=== PATIENT | female | born 2000 | race Caucasian/White ===

== ENCOUNTER 2019-01-07 11:58 | Emergency (ER) | payer MEDICAID ==
[2019-01-07 12:34] LABS: BILIRUBIN,URINE NEGATIVE (NEGATIVE); GLUCOSE, URINE (UA) NEGATIVE (NEGATIVE); KETONES,URINE (UA) NEGATIVE (NEGATIVE); LEUKOCYTE ESTERASE, URINE TRACE (NEGATIVE); NITRITE,URINE NEGATIVE (NEGATIVE); OCCULT BLOOD,URINE LARGE (NEGATIVE); PROTEIN,URINE NEGATIVE (NEGATIVE); UROBILINOGEN,URINE 0.2 (NORMAL) E.U./dL (NORMAL)
[2019-01-07 12:35] LABS: CLARITY,URINE TURBID (CLEAR)
[2019-01-07 12:41] LABS: BACTERIA,URINE Moderate /HPF (None Seen); RBC,URINE 0-5 /HPF (0-5); SQUAMOUS EPITHELIAL CELL,UR MOD Squamous (<= Few)
--- NOTE | 2019-01-07 12:47 | ED Physician Documentation ---
History of Present Illness - Stated complaint Stated Complaint: FEMALE - Chief complaint Chief Complaint: Abd Pain - History obtained from History obtained from: Patient - History of Present Illness Timing: How many days ago (several) Pain level max: 7 Pain level now: 5 - Additonal information Additional information: 18-year-old female presents to the emergency department 1 month after having a Mirena IUD placed. She states of the past 3-4 days has had increased pain and cramping. States she is having some slight clear discharge. No change in sexual partners. She called her client development manager who placed the device and they told her to come to the emergency department for evaluation. Nothing makes the pain better or worse. No fevers. No vomiting. Review of Systems Constitutional: denies: Fever, Chills Nose: denies: Rhinorrhea / runny nose, Congestion Respiratory: denies: Cough GI: denies: Nausea, Vomiting, Diarrhea : denies: Dysuria, Frequency, Hesitancy PD PAST MEDICAL HISTORY - Past Medical History Past Medical History: No - Past Surgical History Past Surgical History: No - Present Medications Home Medications: Ambulatory Orders Medication Instructions Recorded Confirmed Ibuprofen [Motrin] 800 mg PO Q8H PRN #30 tablet 01/07/19 - Allergies Allergies/Adverse Reactions: Allergies Allergy/AdvReac Type Severity Reaction Status Date / Time No Known Drug Allergies Allergy Verified 01/07/19 12:16 - Social History Does the pt smoke?: No Smoking Status: Never smoker Does the pt drink ETOH?: No Does the pt have substance abuse?: Yes Substance Use and Type: Marijuana PD ED PE NORMAL - Vitals Vital signs reviewed: Yes - General General: Alert and oriented X 3, No acute distress - Abdomen Abdomen: Soft, Non tender, Non distended - Female Female : Honey Producer present (Dali PEDERSEN), Other (Normal external exam. Normal internal exam. IUD strings are visible from the cervical os. Small amount of bleeding.) - Derm Derm: Warm and dry - Neuro Neuro: Alert and oriented X 3 - Psych Psych: Normal mood, Normal affect Results - Vitals Vitals: Vital Signs - 24 hr 01/07/19 01/07/19 12:13 14:27 Temperature 36.8 C Heart Rate 123 H 98 Respiratory 20 18 Rate Blood Pressure 126/65 119/75 O2 Saturation 96 99 Oxygen O2 Source Room air - Labs Labs: Microbiology 01/07/19 13:00 Wet Prep - Final Vaginal Laboratory Tests 01/07/19 01/07/19 12:20 12:20 Urine Color Cancelled YELLOW Urine Clarity Cancelled TURBID Urine pH Cancelled 7.0 Ur Specific [place] Cancelled 1.025 Urine Protein Cancelled NEGATIVE Urine Glucose (UA) Cancelled NEGATIVE Urine Ketones Cancelled NEGATIVE Urine Occult Blood Cancelled LARGE H Urine Nitrite Cancelled NEGATIVE Urine Bilirubin Cancelled NEGATIVE Urine Urobilinogen Cancelled 0.2 (NORMAL) Ur Leukocyte Esterase Cancelled TRACE H Urine RBC Cancelled 0-5 Urine WBC Cancelled 6-10 H Urine WBC Clumps Cancelled Ur Epithelial Cells Cancelled Ur Squamous Epith Cells Cancelled MOD Squamous H Urine Crystals Cancelled Amorphous Sediment Cancelled Urine Bacteria Cancelled Moderate H Urine Casts Cancelled Urine Starch Cancelled Urine Mucus Cancelled Urine Trichomonas Cancelled Urine Yeast Cancelled Urine Sperm Cancelled Ur Oval Fat Bodies Cancelled Ur Microscopic Review INDICATED Urine Culture Comments Cancelled NOT INDICATED PD MEDICAL DECISION MAKING - ED course Complexity details: reviewed results, re-evaluated patient, considered differential, d/w patient, d/w salon sales consultant (Dr. León - follow up Thursday as scheduled) ED course: 18-year-old female here with cramping from a recently inserted IUD. Bedside ultrasound reveals a normally placed IUD. Appears centrally located in the uterus. Strings are visible on pelvic exam. No evidence of infection. Urinalysis appears contaminated and she is not having symptoms consistent with a UTI. She has an appointment with gynecology on Thursday and will have her follow-up then for further care. Patient counseled regarding signs and symptoms for which I believe and urgent re-evaluation would be necessary. Patient with good understanding of and agreement to plan and is comfortable going home at this time This document was made in part using voice recognition software. While efforts are made to proofread this document, sound alike and grammatical errors may occur. Departure - Departure Disposition: 01 Home, Self Care Clinical Impression: IUD check up Condition: Good Instructions: Levonorgestrel intrauterine device IUD Follow-Up: Deysi Hastings CNM, DIRECTOR PRODUCT SAFETY [Provider Admit Priv/Credential] - 01/10/19 Prescriptions: Ibuprofen [Motrin] 800 mg PO Q8H PRN #30 tablet PRN Reason: PAIN &/OR FEVER Comments: Follow up with gynecology on Thursday as scheduled. Return if you worsen.
[2019-01-07 14:27] VITALS: BP 119/75
== END 2019-01-07 14:51 | disposition home or self-care (01) ==
LOC: ED 11:58
DX: R10.9 Unspecified abdominal pain (principal); Z30.431 Encounter for routine checking of intrauterine contraceptive device
CPT/HCPCS: 81001; 81003; 87086; 87210; 99283

== ENCOUNTER 2020-12-04 20:46 | Emergency (ER) | payer MEDICAID ==
[2020-12-04 21:02] VITALS: BP 150/99
[2020-12-04] MEDS ORDERED: AMOX/CLAV 875 MG/125 MG TABLET PO STA (21:17)
[2020-12-04] MEDS ORDERED: HYDROcod/ACETAM 5/325 MG TABLET PO STA (21:17)
--- NOTE | 2020-12-04 21:21 | ED Physician Documentation ---
History of Present Illness - Stated complaint Stated Complaint: MOUTH PX - Chief complaint Chief Complaint: Heent - Additonal information Additional information: 20-year-old female presents emergency department for evaluation of intermittent but recurrent right upper mouth pain. Reports that it began about 6 weeks ago. It began at tooth #2 at the site where a filling had fallen out. She has no trismus or facial swelling. She is sometimes pain-free but will suddenly developed the pain in her mouth that radiates towards the anterior upper jaw as well as through her ear. She is a daily tobacco and cannabis user. Denies any pertinent past medical history. Takes no prescribed medications. Review of Systems Constitutional: reports: Reviewed and negative Eyes: reports: Reviewed and negative Ears: reports: Ear pain Nose: reports: Reviewed and negative Throat: reports: Dental pain / toothache. denies: Oral lesions / sores, Sore throat, Swollen tonsils Respiratory: reports: Reviewed and negative GI: reports: Reviewed and negative PD PAST MEDICAL HISTORY - Past Surgical History Past Surgical History: No - Present Medications Home Medications: Ambulatory Orders Medication Instructions Recorded Confirmed Amox/Clav 875/125 [Augmentin] 1 each PO Q12H #20 tablet 12/04/20 Chlorhexidine Gluconate [Peridex] 15 ml MM BID #118 mouthwash 12/04/20 Ibuprofen [Motrin] 600 mg PO Q6H PRN #30 tab 12/04/20 - Allergies Allergies/Adverse Reactions: Allergies Allergy/AdvReac Type Severity Reaction Status Date / Time No Known Drug Allergies Allergy Verified 01/07/19 12:16 - Social History Does the pt smoke?: No Smoking Status: Never smoker Does the pt drink ETOH?: No Does the pt have substance abuse?: Yes PD ED PE EXPANDED - General General: Alert, Anxious, In Pain - HEENT HEENT: Atraumatic, Ears normal, Moist mucous membranes, Pharynx normal, Dental decay (Tooth #2 with missing filling. It is off-color and li in appearance. Mild gumline erythema without fluctuance or drainage. No trismus. Normal swallow.). No: Pharyngeal erythema, Swollen tonsils, Tonsillar exudate, Dental trauma - Neck Neck: Supple w/out meningeal sx. No: Adenopathy - Cardiac Cardiac: Tachy, Radial strong equal, Cap refill < 2 sec. No: Murmur Present - Respiratory Respiratory: Clear to ausultation alek. No: Distress, Labored Results - Vitals Vitals: Vital Signs - 24 hr 12/04/20 20:52 Temperature 37.3 C Heart Rate 119 H Respiratory 22 Rate Blood Pressure 150/99 H O2 Saturation 100 Oxygen O2 Source Room air PD MEDICAL DECISION MAKING - ED course Complexity details: reviewed results, re-evaluated patient, considered differential ED course: 20-year-old female presents emergency department for evaluation of intermittent right upper mouth pain at the site where a filling has fallen out of tooth #2. The tooth itself is decayed and li in color. There is mild tenderness with palpation of this tooth and a small amount of gumline erythema without fluctuance. Patient has no trismus. Normal swallow and phonation. We will start her on a 10-day course of Augmentin as well as mouthwash. Will recommend ibuprofen for analgesia at home. Patient declines narcotic prescription. I have advised her to have close follow-up with dentistry as soon as possible. Emergent return precautions discussed for increased pain, fevers, trismus or facial swelling. Departure - Departure Disposition: Home, Self Care Clinical Impression: Dentalgia Condition: Stable Record reviewed to determine appropriate education?: Yes Instructions: ED Tooth Pain Follow-Up: [facility] [Provider Group] Prescriptions: Amox/Clav 875/125 [Augmentin] 1 each PO Q12H #20 tablet Ibuprofen [Motrin] 600 mg PO Q6H PRN #30 tab PRN Reason: Pain Chlorhexidine Gluconate [Peridex] 15 ml MM BID #118 mouthwash Comments: Chloe I think the cause of your mouth pain is most likely the decaying tooth in your upper jaw. Please fill the prescription for the Augmentin and begin taking twice daily as directed. I would like you to use the ibuprofen with food 2-3 times a day for discomfort. I have prescribed a mouthwash. However if it is not covered by insurance or cost prohibitive please rinse your mouth 3 times daily with warm salt water. Please follow-up with a dentist as soon as possible. It is likely that you will need a root canal of this tooth or for the tooth to be removed entirely. [facility] are likely the closest dental clinics to where you live. However [facility] in the [facility] often has dental clinic walk-in appointments available. I recommend that you call them to see if they are able to assist you if you are able to find your way to the [place] area. If at any point you have facial swelling, fevers, cannot open your jaw fully or tolerate your oral secretions/saliva and please return immediately to the ER
== END 2020-12-04 21:35 | disposition home or self-care (01) ==
LOC: ED 20:46
DX: K08.89 Other specified disorders of teeth and supporting structures (principal); Z72.0 Tobacco use
CPT/HCPCS: 99283; A9270

== ENCOUNTER 2020-12-15 08:47 | Emergency (ER) | payer MEDICAID ==
[2020-12-15 09:17] LABS: BASOPHILS # (AUTO) 0.1 10^3/uL (0.0-0.1); BASOPHILS % (AUTO) 0.6 %; EOSINOPHILS # (AUTO) 0.3 10^3/uL (0.0-0.7); HGB - HEMOGLOBIN 13.5 g/dL (12.0-16.0); LYMPHOCYTES # (AUTO) 2.1 10^3/uL (1.5-3.5); LYMPHOCYTES % (AUTO) 22.1 %; MEAN CORPUSCULAR HEMOGLOBIN 29.5 pg (27.0-31.0); MEAN CORPUSCULAR HGB CONC 33.2 g/dL (32.0-36.0); MEAN CORPUSCULAR VOLUME 89.1 fL (81.0-99.0); MEAN PLATELET VOLUME 9.6 fL (7.9-10.8); MONOCYTES # (AUTO) 0.5 10^3/uL (0.0-1.0); MONOCYTES % (AUTO) 5.4 %; NEUTROPHILS # (AUTO) 6.4 10^3/uL (1.5-6.6); NEUTROPHILS % (AUTO) 68.5 %; PLT - PLATELET COUNT 350 10^3/uL (130-450); RED BLOOD COUNT 4.57 10^6/uL (4.20-5.40); RED CELL DISTRIBUTION WIDTH 15.4 % (12.0-15.0); WHITE BLOOD COUNT 9.3 x10^3/uL (4.8-10.8)
[2020-12-15 09:30] LABS: GLUCOSE, URINE (UA) NEGATIVE (NEGATIVE); KETONES,URINE (UA) >=80 mg/dL (NEGATIVE); LEUKOCYTE ESTERASE, URINE NEGATIVE (NEGATIVE); NITRITE,URINE NEGATIVE (NEGATIVE); OCCULT BLOOD,URINE SMALL (NEGATIVE); PH,URINE 5.5 PH (5.0-7.5); PROTEIN,URINE NEGATIVE (NEGATIVE); UROBILINOGEN,URINE 0.2 (NORMAL) E.U./dL (NORMAL)
[2020-12-15 09:30] LABS: ALBUMIN 4.7 g/dL (3.2-5.5); ALBUMIN/GLOBULIN RATIO 1.3 (1.0-2.2); BILIRUBIN,TOTAL 0.5 mg/dL (0.2-1.0); CALCIUM 9.7 mg/dL (8.5-10.3); CREATININE 0.6 mg/dL (0.4-1.0); TOTAL PROTEIN 8.4 g/dL (6.7-8.2)
[2020-12-15 09:35] LABS: BILIRUBIN,URINE NEGATIVE (NEGATIVE); HCG UR QUAL NEGATIVE; ICTOTEST,URINE NEGATIVE
[2020-12-15 09:36] LABS: CLARITY,URINE HAZY (CLEAR)
[2020-12-15] MEDS ORDERED: ONDANSETRON 4 MG/2 ML VIAL IVP STA ×2 (09:45→12:47)
[2020-12-15] MEDS ORDERED: LACTATED RINGERS 1,000 ML IV STA ×2 (09:45→11:29)
[2020-12-15 09:48] LABS: BACTERIA,URINE Few /HPF (None Seen); RBC,URINE 0-5 /HPF (0-5); SQUAMOUS EPITHELIAL CELL,UR MOD Squamous (<= Few)
--- NOTE | 2020-12-15 11:23 | ED Physician Documentation ---
History of Present Illness - Stated complaint Stated Complaint: DIZZINESS,NAUSEA - Chief complaint Chief Complaint: General - History obtained from History obtained from: Patient - Additonal information Additional information: 20-year-old woman with past medical history of recent dental infection status post antibiotics with resolution presents with nonbloody nonbilious nausea and vomiting yesterday and this morning associated with chills, intermittent dizziness and a brief fainting spell yesterday witnessed by her significant other. Patient does not have a thermometer at home but feels like she has been running a fever. Denies back pain abdominal pain or urinary symptoms. She does have IBS and has chronic diarrhea that is nonworsening and without blood. denies sick contacts aside from boyfriend who has uri symptoms. Review of Systems Ten Systems: 10 systems reviewed and negative Constitutional: reports: Chills, Myalgias Nose: reports: Rhinorrhea / runny nose Cardiac: denies: Chest pain / pressure Respiratory: reports: Dyspnea GI: reports: Nausea, Vomiting, Diarrhea Neurologic: reports: Syncope PD PAST MEDICAL HISTORY - Past Medical History Past Medical History: No - Past Surgical History Past Surgical History: No - Present Medications Home Medications: Ambulatory Orders Medication Instructions Recorded Confirmed Amox/Clav 875/125 [Augmentin] 1 each PO Q12H #20 tablet 12/04/20 12/15/20 Chlorhexidine Gluconate [Peridex] 15 ml MM BID #118 mouthwash 12/04/20 12/15/20 Ibuprofen [Motrin] 600 mg PO Q6H PRN #30 tab 12/04/20 12/15/20 Ondansetron Odt [Zofran Odt] 4 mg PO Q8H PRN 3 Days #9 tablet 12/15/20 - Allergies Allergies/Adverse Reactions: Allergies Allergy/AdvReac Type Severity Reaction Status Date / Time No Known Drug Allergies Allergy Verified 12/15/20 08:56 - Social History Does the pt smoke?: No Smoking Status: Never smoker Does the pt drink ETOH?: No Does the pt have substance abuse?: Yes PD ED PE NORMAL - Vitals Vital signs reviewed: Yes - General General: Alert and oriented X 3, No acute distress, Well developed/nourished - HEENT HEENT: Atraumatic, PERRL, EOMI, Pharynx benign, Other (dry MM) - Neck Neck: Supple, no meningeal sign - Cardiac Cardiac: RRR - Respiratory Respiratory: No respiratory distress, Clear bilaterally - Abdomen Abdomen: Non tender, Non distended - Female Female : Deferred - Rectal Rectal: Deferred - Back Back: No CVA TTP - Derm Derm: Normal color - Extremities Extremities: No deformity, No edema - Neuro Neuro: Alert and oriented X 3, agricultural equipment salesperson 2-12 intact, No motor deficit, No sensory deficit - Psych Psych: Normal mood, Normal affect Results - Vitals Vitals: Vital Signs - 24 hr 12/15/20 12/15/20 08:51 10:00 Temperature 35.9 C L Heart Rate 114 H 74 Respiratory 16 16 Rate Blood Pressure 154/119 H 110/69 O2 Saturation 98 99 Oxygen O2 Source Room air - Labs Labs: Laboratory Tests 12/15/20 12/15/20 12/15/20 09:04 09:04 09:16 WBC 9.3 RBC 4.57 Hgb 13.5 Hct 40.7 MCV 89.1 MCH 29.5 MCHC 33.2 RDW 15.4 H Plt Count 350 MPV 9.6 Neut # (Auto) 6.4 Lymph # (Auto) 2.1 [place] # (Auto) 0.5 Eos # (Auto) 0.3 Baso # (Auto) 0.1 Absolute Nucleated RBC 0.00 Nucleated RBC % 0.0 Sodium 139 Potassium 3.4 L Chloride 102 Carbon Dioxide 23 Anion Gap 14.0 H BUN 8 Creatinine 0.6 Estimated GFR (MDRD) 125 Glucose 108 H Calcium 9.7 Total Bilirubin 0.5 AST 21 ALT 18 Alkaline Phosphatase 68 Total Protein 8.4 H Albumin 4.7 Globulin 3.7 Albumin/Globulin Ratio 1.3 Lipase 18 L Urine Color YELLOW Urine Clarity HAZY Urine pH 5.5 Ur Specific [place] >=1.030 H Urine Protein NEGATIVE Urine Glucose (UA) NEGATIVE Urine Ketones >=80 H Urine Occult Blood SMALL H Urine Nitrite NEGATIVE Urine Bilirubin NEGATIVE Urine Urobilinogen 0.2 (NORMAL) Ur Leukocyte Esterase NEGATIVE Urine RBC 0-5 Urine WBC 0-3 Ur Squamous Epith Cells MOD Squamous H Urine Bacteria Few Ur Microscopic Review INDICATED Urine Culture Comments NOT INDICATED Urine HCG, Qual NEGATIVE PD MEDICAL DECISION MAKING - ED course ED course: 20-year-old woman with nausea vomiting, lightheadedness and chills with preceding URI symptoms. We will Covid swab..Patient feeling better status post Zofran and IV fluids. Educated about symptomatic care. Return precautions given. Patient will follow up with her primary doctor. Departure - Departure Clinical Impression: Nausea and vomiting, Syncope Condition: Good Instructions: Diet Clear Liquid Dc Prescriptions: Ondansetron Odt [Zofran Odt] 4 mg PO Q8H PRN 3 Days #9 tablet PRN Reason: Nausea / Vomiting Comments: You were seen in the emergency department for dizziness, nausea, vomiting and chills. Your labs, urine, and ekg were normal. You likely have a viral infection. Buy a thermometer and take your temperature by mouth at home when you are feeling sick. If it is over 100.4 then you have a fever. Drink pedialyte to stay hydrated. get lots of rest. return To the emergency room for any new or worsening symptoms or other concerns. Follow-up with your primary doctor this week.
[2020-12-15 13:21] VITALS: BP 121/74
== END 2020-12-15 13:15 | disposition home or self-care (01) ==
LOC: ED 08:47
DX: R55 Syncope and collapse (principal); R42 Dizziness and giddiness; R11.2 Nausea with vomiting, unspecified; R68.83 Chills (without fever); Z20.822 Contact with and (suspected) exposure to COVID-19; K58.0 Irritable bowel syndrome with diarrhea
CPT/HCPCS: 36415; 80053; 81001; 81025; 83690; 85025; 87635; 93005; 96361; 96374; 96376; 99283; 99284; J7120; 81003; 87086

== ENCOUNTER 2021-07-15 11:30 | Emergency (ER) | payer MEDICAID ==
[2021-07-15 11:47] VITALS: BP 152/113
--- NOTE | 2021-07-15 12:14 | ED Physician Documentation ---
PD HPI HEENT - Stated complaint Stated Complaint: LUMP ON HEAD - Chief complaint Chief Complaint: Heent - History obtained from History obtained from: Patient - Additional information Additional information: 3 days of pain and swelling of the left posterior neck without URI symptoms or other symptoms of infection. Review of Systems Constitutional: reports: Reviewed and negative Eyes: reports: Reviewed and negative Ears: reports: Reviewed and negative Nose: reports: Reviewed and negative Throat: reports: Reviewed and negative Cardiac: reports: Reviewed and negative PD PAST MEDICAL HISTORY - Past Surgical History Past Surgical History: No - Present Medications Home Medications: Ambulatory Orders Medication Instructions Recorded Confirmed Ibuprofen [Motrin] 800 mg PO Q8H PRN #20 tablet 07/15/21 - Allergies Allergies/Adverse Reactions: Allergies Allergy/AdvReac Type Severity Reaction Status Date / Time No Known Drug Allergies Allergy Verified 07/15/21 11:47 - Social History Does the pt smoke?: No Smoking Status: Never smoker Does the pt drink ETOH?: No Does the pt have substance abuse?: Yes PD ED PE NORMAL - Vitals Vital signs reviewed: Yes - General General: Alert and oriented X 3, No acute distress - HEENT HEENT: Other (2 small firm swellings consistent with lymphadenopathy of the left posterior cervical chain. Mildly tender. No fluctuance or skin changes.) - Neck Neck: Supple, no meningeal sign, No bony TTP - Neuro Neuro: Alert and oriented X 3, Normal speech Results - Vitals Vitals: Vital Signs - 24 hr 07/15/21 11:44 Heart Rate 109 H Respiratory 16 Rate Blood Pressure 152/113 H O2 Saturation 98 Oxygen O2 Source Room air Departure - Departure Disposition: 01 Home, Self Care Clinical Impression: Lymphadenopathy Condition: Good Record reviewed to determine appropriate education?: Yes Instructions: ED Cervical Adenitis No Abx Tx Prescriptions: Ibuprofen [Motrin] 800 mg PO Q8H PRN #20 tablet PRN Reason: PAIN &/OR FEVER Comments: As discussed this seems most consistent with lymphadenopathy of the posterior cervical chain. You can just keep an eye on it for now if it gets worse or comes to ahead or if there are skin changes return for reevaluation. If it goes away, no specific treatment is necessary, if it lasts more than a few weeks you should follow-up with ENT for evaluation for potential biopsy. The closest ENT is in [place], the phone number is [phone].
== END 2021-07-15 12:22 | disposition home or self-care (01) ==
LOC: ED 11:30
DX: R59.0 Localized enlarged lymph nodes (principal)
CPT/HCPCS: 99281; 99283

== ENCOUNTER 2022-05-24 12:07 | Emergency (ER) | payer MEDICAID ==
[2022-05-24 12:15] VITALS: BP 160/91
--- NOTE | 2022-05-24 13:12 | ED Physician Documentation ---
PD HPI URI - Stated complaint Stated Complaint: CHEST PAIN/COUGH/DIZZINESS - Chief complaint Chief Complaint: Resp - History obtained from History obtained from: Patient - History of Present Illness Timing - onset: How many days ago (3) Timing duration: Days (3) Timing details: Gradual onset Pain level max: 0 Pain level now: 0 Associated symptoms: Nasal congestion, Rhinorrhea, Dry cough. No: Fever, Chest pain, Dyspnea Contributing factors: No: Sick contact Improves by: Rest Worsened by: Activity - Additional information Additional information: 22-year-old female presents to the emergency department complaining of cough, congestion for the past 2 to 3 days. She is not COVID vaccinated but did have COVID about 5 months ago. She also has mild nausea but no vomiting. Denies any possibility of . She states her boss told her to come to the emergency department for a COVID test and that she will need to be quarantined until the COVID test is negative. Review of Systems Constitutional: denies: Fever, Chills Nose: reports: Rhinorrhea / runny nose, Congestion Respiratory: denies: Cough GI: denies: Nausea, Vomiting, Diarrhea Skin: denies: Rash Musculoskeletal: denies: Neck pain, Back pain Neurologic: denies: Headache PD PAST MEDICAL HISTORY - Past Medical History Past Medical History: No - Past Surgical History Past Surgical History: No - Present Medications Home Medications: Ambulatory Orders Medication Instructions Recorded Confirmed Norethindrone-E.estradiol-Iron 1 tab PO DAILY 05/24/22 05/24/22 [Kimber 24 Fe 1 mg-20 Mcg Tablet] Prochlorperazine [Compazine] 5 mg PO Q6H PRN #14 tablet 05/24/22 - Allergies Allergies/Adverse Reactions: Allergies Allergy/AdvReac Type Severity Reaction Status Date / Time No Known Drug Allergies Allergy Verified 05/24/22 12:15 - Living Situation Living Arrangement: reports: At home - Social History Does the pt smoke?: Yes Smoking Status: Current every day smoker Does the pt drink ETOH?: No Does the pt have substance abuse?: Yes Substance Use and Type: Marijuana PD ED PE NORMAL - Vitals Vital signs reviewed: Yes - General General: Alert and oriented X 3, No acute distress - HEENT HEENT: PERRL, Moist mucous membranes - Neck Neck: Supple, no meningeal sign - Cardiac Cardiac: RRR, Strong equal pulses - Respiratory Respiratory: No respiratory distress, Clear bilaterally - Abdomen Abdomen: Soft, Non tender, Non distended - Derm Derm: Warm and dry, No rash - Extremities Extremities: No edema - Neuro Neuro: Alert and oriented X 3 - Psych Psych: Normal mood, Normal affect Results - Vitals Vitals: Vital Signs - 24 hr 05/24/22 12:10 Temperature 36.9 C Heart Rate 70 Respiratory 16 Rate Blood Pressure 160/91 H O2 Saturation 98 Oxygen O2 Source Room air PD MEDICAL DECISION MAKING - ED course Complexity details: considered differential, d/w patient ED course: Patient is well-appearing, nontoxic. Afebrile. Lungs are clear to auscultation bilaterally. No hypoxia. No respiratory distress. COVID testing was performed. We will have her follow-up with her doctor for further care. Patient and mother are sick with similar symptoms. Patient does request medication for nausea, this was prescribed. Patient counseled regarding signs and symptoms for which I believe and urgent re-evaluation would be necessary. Patient with good understanding of and agreement to plan and is comfortable going home at this time This document was made in part using voice recognition software. While efforts are made to proofread this document, sound alike and grammatical errors may occur. Departure - Departure Disposition: 01 Home, Self Care Clinical Impression: Viral URI Condition: Good Instructions: ED Viral Syndrome Follow-Up: your,doctor in 1 week [Other] Prescriptions: Prochlorperazine [Compazine] 5 mg PO Q6H PRN #14 tablet PRN Reason: Nausea / Vomiting Comments: Your prescription was sent to [facility] in [place]. Follow-up with your doctor as needed for further care. Your test results should be back in 1 to 2 days. See the quarantine schedule below. Isolation precautions for COVID Day 0 is your first day of symptoms or a positive viral test. Day 1 is the first full day after your symptoms developed or your test specimen was collected. If you have COVID-19 or have symptoms, isolate for at least 5 days. IF YOU: Tested positive for COVID-19 or have symptoms, regardless of vaccination status Stay home for at least 5 days Stay home for 5 days and isolate from others in your home. Wear a well-fitting mask if you must be around others in your home. Do not travel. Ending isolation if you had symptoms End isolation after 5 full days if you are fever-free for 24 hours (without the use of fever-reducing medication) and your symptoms are improving. Ending isolation if you did NOT have symptoms End isolation after at least 5 full days after your positive test. If you got very sick from COVID-19 or have a weakened immune system You should isolate for at least 10 days. Consult your doctor before ending isolation. Take precautions until day 10 Wear a well-fitting mask Wear a well-fitting mask for 10 full days any time you are around others inside your home or in public. Do not go to places where you are unable to wear a mask. Do not travel Do not travel until a full 10 days after your symptoms started or the date your positive test was taken if you had no symptoms. Avoid being around people who are more likely to get very sick from COVID-19. Discharge Date/Time: 05/24/22 13:19
== END 2022-05-24 13:19 | disposition home or self-care (01) ==
LOC: ED 12:07
DX: J06.9 Acute upper respiratory infection, unspecified (principal); Z86.16 Personal history of COVID-19; Z28.310 Unvaccinated for COVID-19; Z20.822 Contact with and (suspected) exposure to COVID-19; R11.0 Nausea
CPT/HCPCS: 99283

== ENCOUNTER 2023-02-16 16:30 | Outpatient (CLI) | payer MEDICAID ==
--- NOTE | 2023-02-17 11:57 | Ultrasound Report ---
PROCEDURE: OB First Trimester w/TV INDICATIONS: POSITIVE TEST OUTSIDE/PRIOR DATING DATA: Last menstrual period (LMP): 12/19/2022. LMP-based estimated date of delivery (CHEPE): 09/25/2023. First dating scan (date and location): 02/16/2023. Estimated date of delivery (CHEPE) from first dating scan: 09/18/2023. TECHNIQUE: Real-time scanning was performed of the fetus and maternal pelvic organs, with image documentation. Endovaginal scanning was also performed to better visualize the fetus and maternal ovaries. COMPARISON: None. FINDINGS: Embryo: Intrauterine gestational sac is seen with yolk sac and pole. Cherry-rump length is 2.6 cm, compatible with an estimated gestational age of 9 weeks 3 days. Heart rate: 166 bpm Measurement variability in dating: +/- 4 weeks by LMP, +/- 7 days by mean sac diameter (use before 6 weeks gestation if crown-rump length not able to be measured), +/- 5 days by crown-rump length (6-12 weeks gestation). Maternal organs: Left ovary is unremarkable unremarkable. Right ovary is not visualized. IMPRESSION: Single live intrauterine with estimated gestational age of 9 weeks 3 days, compatible with an ultrasound CHEPE of 09/18/2023. Reviewed by: Michael Gomes MD on 02/17/2023 11:56 AM PDT Approved by: Michael Gomes MD on 02/17/2023 11:56 AM PDT Station ID: [id number]
== END 2023-02-16 16:31 | disposition home or self-care (01) ==
LOC: DI 16:30
PROVIDERS: ATTEND Obstetrics & Gynecology
DX: Z34.91 Encounter for supervision of normal pregnancy, unspecified, first trimester (principal)

== ENCOUNTER 2023-04-06 08:00 | Outpatient (CLI) | payer MEDICAID ==
[2023-04-06 22:21] LABS: CHLAMYDIA TRACHOMATIS DNA NEGATIVE (NEGATIVE)
[2023-04-06 22:22] LABS: NEISSERIA GONORRHOEAE DNA NEGATIVE (NEGATIVE); TRICHOMONAS VAGINALIS DNA NEGATIVE (NEGATIVE)
== END 2023-04-06 23:59 | disposition home or self-care (01) ==
LOC: LAB.WC 08:00
PROVIDERS: ATTEND Obstetrics & Gynecology
DX: Z11.3 Encounter for screening for infections with a predominantly sexual mode of transmission (principal)
CPT/HCPCS: 87491; 87591; 87661

== ENCOUNTER 2023-05-11 13:30 | Outpatient (CLI) | payer MEDICAID ==
--- NOTE | 2023-05-11 15:09 | Ultrasound Report ---
PROCEDURE: OB 14+ Weeks INDICATIONS: SUPERVISION OF OUTSIDE/PRIOR DATING DATA: Last menstrual period (LMP): 12/19/2022. LMP-based estimated date of delivery (CHEPE): 09/25/2023. First dating scan (date and location): 02/16/2023. Estimated date of delivery (CHEPE) from first dating scan: 09/18/2023. The below data below was generated using the ultrasound CHEPE of 09/18/2023 TECHNIQUE: Real-time scanning was performed of the fetus, with image documentation and biometric measurements. Endovaginal scanning: Not performed COMPARISON: None. FINDINGS: General: A single living intrauterine gestation is present. Presentation: Variable Placenta: Placental position is posterior, without previa. Amniotic fluid index: 18.6 cm, 84th percentile for gestational age. heart rate: 158 beats per minute. Maternal cervical canal is closed. biometrics: Biparietal diameter: 5.16 cm, 21 weeks 5 days Head circumference: 19.18 cm, 21 weeks 3 days Abdominal circumference: 15.31 cm, 20 weeks 4 days Femur length: 3.67 cm, 21 weeks 5 days Estimated gestational age from initial scan: 21 weeks 3 days Composite gestational age from present scan: 21 weeks 2 days Estimated weight and percentile: 399 g, 20th percentile Measurement variability for biometric dating: +/- 10 days from 12-20 weeks gestation, +/- 2 weeks fro m 20-30 weeks gestation, +/- 3 weeks for 30 weeks gestation or later. Anatomic survey: Neuro: Ventricles are non-dilated at less than 10 mm. Cisterna magna is normal at 3-11 mm. Cerebel lum is normal in size and morphology. Nuchal skin fold: Normal at less than 6 mm between 14-20 weeks gestational age. Face: Not evaluated Spine: No evidence for spina bifida. Heart: 4-chambered heart is present. Outflow tracts not evaluated. Diaphragm: Diaphragm is intact. Stomach: Left-sided stomach is present. Kidneys: No hydronephrosis. Normal is less than 5 mm in 2nd trimester, less than 7 mm in 3rd trimester. Cord: 3-vessel cord has orthotopic insertion. Bladder: Normal in size. Extremities: All 4 extremities not identified. IMPRESSION: Single living intrauterine at 20 weeks 2 days. Estimated weight of 399 g, 28th percentile. Incomplete anatomy survey, as the facial profile, cardiac outflow tracts and extremities are no t completely visualized. Reviewed by: Victor M Jennings on 05/11/2023 3:08 PM PDT Approved by: Victor M Jennings on 05/11/2023 3:08 PM PDT Station ID: [id number]
== END 2023-05-11 13:31 | disposition home or self-care (01) ==
LOC: DI 13:30
PROVIDERS: ATTEND Obstetrics & Gynecology
DX: Z34.92 Encounter for supervision of normal pregnancy, unspecified, second trimester (principal)

== ENCOUNTER 2023-06-19 16:35 | Outpatient (CLI) | payer MEDICAID ==
--- NOTE | 2023-06-20 14:33 | Ultrasound Report ---
PROCEDURE: OB F/U or Repeat INDICATIONS: OBESITY COMPLICATING OUTSIDE/PRIOR DATING DATA: Last menstrual period (LMP): D3 23. LMP-based estimated date of delivery (CHEPE): 09/25/2023. First dating scan (date and location): 02/16/2023. Estimated date of delivery (CHEPE) from first dating scan: 09/18/2023. The below data below was generated using the ultrasound CHEPE of 09/18/2023 TECHNIQUE: Real-time scanning was performed of the fetus, with image documentation and biometric measurements. Endovaginal scanning: Not performed. COMPARISON: OB ultrasound 05/11/2023 FINDINGS: General: A single living intrauterine gestation is present. Presentation: Cephalic Placenta: Placental position is posterior, without previa. Amniotic fluid index: 20.1 cm, within normal limits for gestational age. heart rate: 157 beats per minute. Maternal cervical canal is closed. Estimated gestational age from initial scan: 27 weeks 0 days. Limited anatomical survey. . Face: The profile is not seen secondary to positioning. Heart: 4-chambered heart is present. Outflow tracts are within normal limits. Diaphragm: Diaphragm is intact. Stomach: Left-sided stomach is present. Kidneys: No hydronephrosis. Normal is less than 5 mm in 2nd trimester, less than 7 mm in 3rd tr imester Bladder: Normal in size. Extremities: All 4 extremities are seen and are within normal limits. IMPRESSION: 1.Single live intrauterine . 2.Limited anatomical survey as described above. The facial profile is not seen secondary to pos itioning. Otherwise, the remainder of the anatomy is within normal limits. Reviewed by: Vicente Plunkett MD on 06/20/2023 2:32 PM PDT Approved by: Vicente Plunkett MD on 06/20/2023 2:32 PM PDT Station ID: [id number]
== END 2023-06-19 16:36 | disposition home or self-care (01) ==
LOC: DI 16:35
PROVIDERS: ATTEND Obstetrics & Gynecology
DX: O99.212 Obesity complicating pregnancy, second trimester (principal); Z3A.27 27 weeks gestation of pregnancy

== ENCOUNTER 2023-09-03 08:00 | Outpatient (CLI) | payer MEDICAID | END 2023-09-03 23:59 | disposition home or self-care (01) | LOC: LAB.WC 08:00 | PROVIDERS: ATTEND Obstetrics & Gynecology | DX: Z36.85 Encounter for antenatal screening for Streptococcus B (principal) | CPT/HCPCS: 87797 ==

== ENCOUNTER 2023-09-03 13:33 | Outpatient (CLI) | payer MEDICAID ==
[2023-09-03 13:53] VITALS: BP 121/73; O2SAT 99
--- NOTE | 2023-09-03 14:34 | PROCEDURE REPORT ---
- HPI Vital Signs Temperature 98.6 F 09/03/23 13:46 Heart Rate 97 09/03/23 13:46 Respiratory Rate 17 09/03/23 13:46 Blood Pressure 121/73 09/03/23 13:46 O2 Saturation 99 09/03/23 13:46 Temperature 98.6 F 09/03/23 13:46 Heart Rate 97 09/03/23 13:46 Respiratory Rate 17 09/03/23 13:46 Blood Pressure 121/73 09/03/23 13:46 O2 Saturation 99 09/03/23 13:46 If not protocol: Oxygen Flow, liters/minute - NST Procedure NST Procedure Start Date 09/03/23 Start Time 13:42 Stop Time 14:35 Vibroacoustic Stimulation Used Yes Patient States Movement Yes - Results and Plan Plan: Patient is a 23-year-old -0-1-0 at 36 weeks 6 days gestation here for NST. NST Performed 09/03/2023 NST Read 09/03/2023 FHT: 150 bpm baseline, moderate variability, accelerations present, no decelerations. Reactive NST Snowflake: Quiescent Diagnosis 36 weeks gestation Obesity Continue with twice-weekly NST.
== END 2023-09-03 14:40 | disposition home or self-care (01) ==
LOC: WFO 13:33 → FBP 13:34 → WFO 14:40
PROVIDERS: ATTEND Obstetrics & Gynecology
DX: O16.3 Unspecified maternal hypertension, third trimester (principal); O99.213 Obesity complicating pregnancy, third trimester; Z3A.36 36 weeks gestation of pregnancy; Z36.85 Encounter for antenatal screening for Streptococcus B; O09.93 Supervision of high risk pregnancy, unspecified, third trimester; O99.891 Other specified diseases and conditions complicating pregnancy; R73.03 Prediabetes
CPT/HCPCS: 59025; 87797

== ENCOUNTER 2023-09-07 14:02 | Outpatient (CLI) | payer MEDICAID ==
[2023-09-07 14:30] VITALS: BP 112/66
--- NOTE | 2023-09-07 16:50 | PROCEDURE REPORT ---
- HPI Diagnosis/Indication for NST: Gestational Hypertension Current EDU 09/25/23 Gestation 37 Weeks and 3 Days 2 Para 0 Vital Signs Temperature 98.2 F 09/07/23 14:13 Heart Rate 106 H 09/07/23 14:13 Respiratory Rate 18 09/07/23 14:13 Blood Pressure 112/66 09/07/23 14:13 Temperature 98.2 F 09/07/23 15:06 Heart Rate 106 H 09/07/23 15:06 Respiratory Rate 18 09/07/23 15:06 Blood Pressure 112/66 09/07/23 15:06 O2 Saturation If not protocol: Oxygen Flow, liters/minute - NST Procedure NST Procedure Start Date 09/07/23 Start Time 14:10 Stop Time 14:52 Vibroacoustic Stimulation Used No Patient States Movement Yes 37+3 weeks Gestational hypertension 150, moderate variability, +accels, no decels Reactive NST
== END 2023-09-07 15:00 | disposition home or self-care (01) ==
LOC: WFO 14:02 → FBP 14:04 → WFO 15:00
PROVIDERS: ATTEND Obstetrics & Gynecology Obstetrics
DX: O13.3 Gestational [pregnancy-induced] hypertension without significant proteinuria, third trimester (principal); Z3A.37 37 weeks gestation of pregnancy
CPT/HCPCS: 59025

== ENCOUNTER 2023-09-11 12:57 | Outpatient (CLI) | payer MEDICAID ==
[2023-09-11 14:42] VITALS: BP 114/52
--- NOTE | 2023-09-18 22:58 | PROCEDURE REPORT ---
- HPI Diagnosis/Indication for NST: Other (obesity) Current EDU 09/25/23 Gestation 38 Weeks and 0 Days 2 Para 0 Vital Signs Temperature 98.2 F 09/11/23 13:07 Heart Rate 77 09/11/23 13:07 Respiratory Rate 18 09/11/23 13:07 Blood Pressure 114/52 L 09/11/23 13:07 Temperature 98.2 F 09/11/23 15:07 Heart Rate 72 09/11/23 15:07 Respiratory Rate 18 09/11/23 15:07 Blood Pressure 114/52 L 09/11/23 15:07 O2 Saturation If not protocol: Oxygen Flow, liters/minute - NST Procedure NST Procedure Start Date 09/11/23 Start Time 14:30 Stop Time 15:03 Vibroacoustic Stimulation Used No Patient States Movement Yes NsT reviewed. +acels, no decels. moderate variability. baseline 125 - Results and Plan Findings/Impression: reactive nst Plan: continue with twice weekly nsts
== END 2023-09-11 15:05 | disposition home or self-care (01) ==
LOC: WFO 12:57 → FBP 12:59 → WFO 15:05
PROVIDERS: ATTEND Obstetrics & Gynecology
DX: O16.3 Unspecified maternal hypertension, third trimester (principal); O09.93 Supervision of high risk pregnancy, unspecified, third trimester; O99.213 Obesity complicating pregnancy, third trimester; Z3A.38 38 weeks gestation of pregnancy; O99.891 Other specified diseases and conditions complicating pregnancy; R73.03 Prediabetes
CPT/HCPCS: 59025

== ENCOUNTER 2023-09-15 13:54 | Outpatient (CLI) | payer MEDICAID ==
[2023-09-15 14:20] VITALS: BP 123/74
--- NOTE | 2023-09-15 14:43 | PROCEDURE REPORT ---
- HPI Vital Signs Temperature 98.1 F 09/15/23 14:08 Heart Rate 92 09/15/23 14:08 Respiratory Rate 18 09/15/23 14:08 Blood Pressure 123/74 09/15/23 14:08 Temperature 98.1 F 09/15/23 14:08 Heart Rate 92 09/15/23 14:08 Respiratory Rate 18 09/15/23 14:08 Blood Pressure 123/74 09/15/23 14:08 O2 Saturation If not protocol: Oxygen Flow, liters/minute - NST Procedure NST Procedure Start Time 14:10 Stop Time 14:30 - Results and Plan Plan: Patient is a 23-year-old at 38 weeks 4 days gestation here for s cheduled NST. NST Performed 09/15/2023 NST Read 09/15/2023 FHT: 150 bpm baseline, moderate variability, accelerations present, no decelerations. Reactive NST Cogswell: Quiescent Diagnosis Obesity class III 38 weeks gestation Continue with twice-weekly NST.
== END 2023-09-15 14:45 | disposition home or self-care (01) ==
LOC: WFO 13:54 → FBP 13:56 → WFO 14:45
PROVIDERS: ATTEND Obstetrics & Gynecology
DX: O99.213 Obesity complicating pregnancy, third trimester (principal); E66.01 Morbid (severe) obesity due to excess calories; Z3A.38 38 weeks gestation of pregnancy
CPT/HCPCS: 59025

== ENCOUNTER 2023-09-18 12:43 | Outpatient (CLI) | payer MEDICAID ==
--- NOTE | 2023-09-18 16:57 | Ultrasound Report ---
PROCEDURE: OB Biophysical Profile INDICATIONS: HYPERTENSION OUTSIDE/PRIOR DATING DATA: Last menstrual period (LMP): 12/19/2022. LMP-based estimated date of delivery (CHEPE): 09/25/2023. First dating scan (date and location): 02/16/2023. Estimated date of delivery (CHEPE) from first dating scan: 09/18/2023. The below data below was generated using the clinical CHEPE of 09/25/2023 TECHNIQUE: Real-time scanning was performed of the fetus, with image documentation. Biophysical pro file was also obtained. COMPARISON: OB ultrasound 09/11/2023. FINDINGS: General: A single living intrauterine gestation is present. Presentation: Vertex Placenta: Placental position is posterior, without previa. Amniotic fluid index: 12.4 cm, normal for gestational age. Largest pocket 4.7 cm. heart rate: 166 beats per minute. Maternal cervical canal: Not well seen. Estimated gestational age from initial scan: 39 weeks 0 days Biophysical profile: Tone: 2 points. Movement: 2 points. Respiration: 2 points. Largest pocket of fluid: 2 points. Umbilical artery Doppler: 2.12, 2.43, 2.63. Preserved diastolic flow. IMPRESSION: 1. Colin living intrauterine at 39 weeks 0 days based on prior dating. Vertex position. 2. Normal placenta and amniotic fluid. 3. Normal biophysical profile. Score 8 out of 8. Umbilical artery Doppler is within normal limits. Reviewed by: Andrew Vega MD on 09/18/2023 4:56 PM PDT Approved by: Andrew Vega MD on 09/18/2023 4:56 PM PDT Station ID: [id number]
== END 2023-09-18 12:44 | disposition home or self-care (01) ==
LOC: DI 12:43
PROVIDERS: ATTEND Obstetrics & Gynecology
DX: O09.93 Supervision of high risk pregnancy, unspecified, third trimester (principal); O16.3 Unspecified maternal hypertension, third trimester; O99.213 Obesity complicating pregnancy, third trimester; O99.891 Other specified diseases and conditions complicating pregnancy; R73.9 Hyperglycemia, unspecified; Z3A.39 39 weeks gestation of pregnancy

== ENCOUNTER 2023-09-18 12:58 | Outpatient (CLI) | payer MEDICAID ==
[2023-09-18 13:29] VITALS: BP 107/73
[2023-09-18 13:58] VITALS: O2SAT 98
--- NOTE | 2023-09-18 15:54 | PROCEDURE REPORT ---
- HPI Diagnosis/Indication for NST: Gestational Hypertension Current EDU 09/25/23 Gestation 39 Weeks and 0 Days 1 Para 0 Vital Signs Temperature 98.1 F 09/18/23 13:12 Heart Rate 99 09/18/23 13:12 Respiratory Rate 18 09/18/23 13:12 Blood Pressure 107/73 09/18/23 13:12 Temperature 98.1 F 09/18/23 13:45 Heart Rate 99 09/18/23 13:45 Respiratory Rate 18 09/18/23 13:45 Blood Pressure 107/73 09/18/23 13:45 O2 Saturation 98 09/18/23 13:15 If not protocol: Oxygen Flow, liters/minute - NST Procedure NST Procedure Start Date 09/18/23 Start Time 13:10 Stop Time 13:45 Vibroacoustic Stimulation Used No Patient States Movement Yes 145 mod jahaira + A cells no D cells reactive - Results and Plan Findings/Impression: reactive NST normal VS OK to D/C and continue ANC precautions reviewed Plan: OK to D/C home and continue ANC.
== END 2023-09-18 13:50 | disposition home or self-care (01) ==
LOC: FBP 12:58 → WFO 12:58
PROVIDERS: ATTEND Obstetrics & Gynecology
DX: O16.3 Unspecified maternal hypertension, third trimester (principal); O09.93 Supervision of high risk pregnancy, unspecified, third trimester; O99.213 Obesity complicating pregnancy, third trimester; Z3A.39 39 weeks gestation of pregnancy; O99.891 Other specified diseases and conditions complicating pregnancy; R73.03 Prediabetes
CPT/HCPCS: 59025

== ENCOUNTER 2023-09-21 13:52 | Outpatient (CLI) | payer MEDICAID ==
[2023-09-21 14:05] VITALS: BP 116/75
--- NOTE | 2023-09-21 20:00 | PROCEDURE REPORT ---
- HPI Diagnosis/Indication for NST: Other (obesity) Current EDU 09/25/23 Gestation 39 Weeks and 3 Days 2 Para 0 Vital Signs Temperature 98.2 F 09/21/23 13:56 Heart Rate 92 09/21/23 13:56 Respiratory Rate 18 09/21/23 13:56 Blood Pressure 116/75 09/21/23 13:56 Temperature 98.2 F 09/21/23 13:56 Heart Rate 92 09/21/23 13:56 Respiratory Rate 18 09/21/23 13:56 Blood Pressure 116/75 09/21/23 13:56 O2 Saturation If not protocol: Oxygen Flow, liters/minute - NST Procedure NST Procedure Start Date 09/21/23 Start Time 13:59 Stop Time 14:23 Vibroacoustic Stimulation Used No Patient States Movement Yes reviewed in real time. baseline 135. + acels no decels. mod variability - Results and Plan Findings/Impression: reactive nst Plan: to office for visit after.
== END 2023-09-21 14:34 | disposition home or self-care (01) ==
LOC: WFO 13:52 → FBP 13:54 → WFO 14:34
PROVIDERS: ATTEND Obstetrics & Gynecology
DX: O16.3 Unspecified maternal hypertension, third trimester (principal); O09.93 Supervision of high risk pregnancy, unspecified, third trimester; O99.213 Obesity complicating pregnancy, third trimester; O99.891 Other specified diseases and conditions complicating pregnancy; R73.03 Prediabetes; Z3A.39 39 weeks gestation of pregnancy
CPT/HCPCS: 59025

== ENCOUNTER 2023-09-26 05:03 | Inpatient (IN) | payer MEDICAID ==
[2023-09-26] MEDS ORDERED: METHYLERGONOVINE 0.2 MG/ML VIAL IM PRN (06:12)
[2023-09-26] MEDS ORDERED: LACTATED RINGERS 1,000 ML IV PRN ×2 (06:12)
[2023-09-26] MEDS ORDERED: OXYTOCIN/SODIUM CHLORIDE 500 ML IV PRN (06:12)
[2023-09-26] MEDS ORDERED: SODIUM CHLORIDE FLUSH 0.9% 10 ML SYRINGE IVP PRN (06:12)
[2023-09-26] MEDS ORDERED: TERBUTALINE 1 MG/ML VIAL SUBQ PRN (06:12)
[2023-09-26] MEDS ORDERED: lidocaine 1% 20 ML MDV ID PRN (06:12)
[2023-09-26] MEDS ORDERED: miSOPROStoL 200 MCG TABLET PR PRN (06:12)
[2023-09-26] MEDS ORDERED: miSOPROStoL 200 MCG TABLET BC PRN (06:12)
[2023-09-26] MEDS ORDERED: LABETALOL 20 MG/4 ML SYRINGE IVP PRN ×3 (06:12)
[2023-09-26] MEDS ORDERED: NIFEdipine 10 MG CAPSULE PO PRN (06:12)
[2023-09-26] MEDS ORDERED: CARBOPROST TROMETHAMINE 250 MCG/ML AMP IM PRN (06:12)
[2023-09-26] MEDS ORDERED: TRANEXAMIC ACID IN NACL 1,000 MG/100 ML BAG IV PRN (06:12)
[2023-09-26] MEDS ORDERED: hydrALAZINE INJ 20 MG/ML VIAL IVP PRN ×2 (06:12)
[2023-09-26] MEDS ORDERED: fentaNYL 100 MCG/2 ML VIAL IVP PRN (06:12)
[2023-09-26] MEDS ORDERED: OXYTOCIN 10 UNIT/ML VIAL IM PRN (06:12)
[2023-09-26] MEDS ORDERED: ONDANSETRON 4 MG/2 ML VIAL IVP PRN ×2 (07:09→12:11)
[2023-09-26 07:30] LABS: BASOPHILS % (AUTO) 0.2 %; EOSINOPHILS # (AUTO) 0.1 10^3/uL (0.0-0.7); EOSINOPHILS % (AUTO) 0.5 %; HCT - HEMATOCRIT 35.8 % (37.0-47.0); HGB - HEMOGLOBIN 11.4 g/dL (12.0-16.0); LYMPHOCYTES # (AUTO) 1.4 10^3/uL (1.5-3.5); LYMPHOCYTES % (AUTO) 12.6 %; MEAN CORPUSCULAR HEMOGLOBIN 28.2 pg (27.0-31.0); MEAN CORPUSCULAR HGB CONC 31.8 g/dL (32.0-36.0); MEAN CORPUSCULAR VOLUME 88.6 fL (81.0-99.0); MEAN PLATELET VOLUME 10.4 fL (7.9-10.8); MONOCYTES # (AUTO) 0.5 10^3/uL (0.0-1.0); MONOCYTES % (AUTO) 4.6 %; NEUTROPHILS # (AUTO) 8.8 10^3/uL (1.5-6.6); NEUTROPHILS % (AUTO) 81.5 %; PLT - PLATELET COUNT 301 10^3/uL (130-450); RED BLOOD COUNT 4.04 10^6/uL (4.20-5.40); RED CELL DISTRIBUTION WIDTH 15.3 % (12.0-15.0); WHITE BLOOD COUNT 10.8 x10^3/uL (4.8-10.8)
--- NOTE | 2023-09-26 08:47 | HISTORY & PHYSICAL EXAMINATION ---
Admit History - Visit Reason Visit Reason: Contractions, Bloody show - : 2 Parity: 0 Care: positive: [facility] Risk/History: positive: Other (morbid obesity) Complications This : positive: Other (morbid obesity) - Mother's Labs Mother's Blood Type: positive: O Mother's RH: positive: Positive GBS: positive: Group B Step Negative Rubella Status: positive: Non-immune - Other Maternal History Other Maternal History: Patient is a 23-year-old G2, P1 presenting in labor with painful contractions and bloody show. Patient was counseled extensively in the office and referred to an outside facility for delivery secondary to morbid obesity. However, patient presents in labor with inability to transfer patient to outside facility. Risk, benefits, and alternatives discussed with patient and all questions answered. - HPI Vital Signs Temperature 97.2 F L 09/26/23 05:15 Heart Rate 76 09/26/23 05:15 Respiratory Rate 20 09/26/23 05:15 Blood Pressure 141/82 H 09/26/23 05:15 Temperature 97.2 F L 09/26/23 05:15 Heart Rate 76 09/26/23 05:15 Respiratory Rate 20 09/26/23 05:15 Blood Pressure 141/82 H 09/26/23 05:15 O2 Saturation If not protocol: Oxygen Flow, liters/minute - NST Procedure NST Procedure Start Time 13:59 Stop Time 14:23 term admission for labor complicated by morbid obesity 120, moderate variability, +accels, negative decels reactive NST Meds/Allgy - Home Medications Home Medications: Ambulatory Orders Medication Instructions Recorded Confirmed Norethindrone-E.estradiol-Iron 1 tab PO DAILY 05/24/22 05/24/22 [Kimber 24 Fe 1 mg-20 Mcg Tablet] Prochlorperazine [Compazine] 5 mg PO Q6H PRN #14 tablet 05/24/22 hydrOXYzine HCL [Hydroxyzine HCl] 25 mg PO TID PRN #30 tablet 06/19/22 methylPREDNISolone [Medrol Dose 1 each PO .PACKAGEINSTRUCTIONS 6 06/19/22 Pack] Days #1 each - Allergies Allergies/Adverse Reactions: Allergies Allergy/AdvReac Type Severity Reaction Status Date / Time No Known Drug Allergies Allergy Verified 06/19/22 18:03 Review of Systems - All Other Systems All Other Systems: reports: Reviewed and negative Physical - Abdominal Exam Vital Signs: Temp Pulse Resp BP Pulse Ox O2 Flow Rate 97.2 F L 76 20 141/82 H 09/26/23 05:15 09/26/23 05:15 09/26/23 05:15 09/26/23 05:15 Contraction Intensity: positive: Strong Uterine Resting Tone: positive: Soft - Monitoring Strip Review: positive: Category I - Presentation Presentation: positive: Vertex - Vaginal Exam Membranes: positive: Membranes intact Dilation (in cm): 2 Cervical Position: positive: Midposition Plan for Labor - Plan For Labor I expect patient to be DC'd or transferred within 96 hours.: Yes Plan for Labor: 1. Admit to labor and delivery for labor management 2. Discussed pain management options 3. wellbeing reassuring 4. Morbid obesity: Due to BMI exceeding amount a lot of would be patient was referred to outside facility for delivery. Patient was unable to make it outside delivery and presented in labor at this time we are unable to transfer patient. There has been some difficulty monitoring baby secondary to body habitus, I discussed placing a scalp electrode when able and patient is amenable to this.
--- NOTE | 2023-09-26 09:43 | ANESTHESIA ---
Pre-Anesthesia VS, & Labs - Diagnosis IUP, active labor - Procedure labor epidural consult Vital Signs: Temp Pulse Resp BP Pulse Ox O2 Flow Rate 36.4 C L 70 20 130/81 H 100 09/26/23 09:03 09/26/23 09:03 09/26/23 09:03 09/26/23 09:03 09/26/23 09:03 Height: 5 ft Weight (kg): 123.377 kg Body Mass Index: 53.1 BMI Classification: Morbidly Obese - Is Patient ?: Yes - Lab Results Current Lab Results: Laboratory Tests 09/26/23 06:30: WBC 10.8, RBC 4.04 L, Hgb 11.4 L, Hct 35.8 L, MCV 88.6, MCH 28.2, MCHC 31.8 L, RDW 15.3 H, Plt Count 301, MPV 10.4, Neut # (Auto) 8.8 H, Lymph # (Auto) 1.4 L, Bent # (Auto) 0.5, Eos # (Auto) 0.1, Baso # (Auto) 0.0, Absolute Nucleated RBC 0.00, Nucleated RBC % 0.0 09/26/23 06:30: Blood Type O POSITIVE, Antibody Screen NEGATIVE Lab results reviewed: Yes Fish Bones: 09/26/23 06:30 Home Medications and Allergies Active Medications Carboprost Tromethamine (Carboprost Tromethamine 250 Mcg/Ml Amp) 250 mcg IM .ONCE PRN PRN Reason: Hemorrhage Fentanyl (Fentanyl 100 Mcg/2 Ml Vial) 50 mcg IVP Q1H PRN PRN Reason: Severe Pain (score 7-10) Last Admin: 09/26/23 07:24 Dose: 50 mcg Hydralazine HCl (Hydralazine Inj 20 Mg/Ml Vial) 5 - 10 mg IVP Q20M PRN; Prot ocol PRN Reason: SBP> or= 160 OR DBP> or= 110 Hydralazine HCl (Hydralazine Inj 20 Mg/Ml Vial) 10 mg IVP .ONCE PRN; Protocol PRN Reason: SBP> or= 160 OR DBP> or= 110 Lactated Ringer's (Lr) 500 mls @ 999 mls/hr IV PRN PRN PRN Reason: NEEDED PER PROVIDER ORDERS Oxytocin/Sodium Chloride (Pitocin/Sodium Chloride) 500 mls @ 999 mls/hr IV PRN PRN; Protocol PRN Reason: POST- HEMORR PREVENTION Tranexamic Acid (Tranexamic 1,000 Mg/100ml-Nacl) 1,000 mg in 100 mls @ 600 mls/hr IV Q30M PRN PRN Reason: EBL >1200mL and within 3hr Lactated Ringer's (Lr) 1,000 mls @ 125 mls/hr IV .Q8H PRN PRN Reason: PER PHYSICIAN ORDER Labetalol HCl (Labetalol 20 Mg/4 Ml Syringe) 20 - 80 mg IVP Q10M PRN; Protocol PRN Reason: SBP> or= 160 OR DBP> or= 110 Labetalol HCl (Labetalol 20 Mg/4 Ml Syringe) 20 mg IVP .ONCE PRN; Protocol PRN Reason: SBP> or= 160 OR DBP> or= 110 Labetalol HCl (Labetalol 20 Mg/4 Ml Syringe) 20 - 40 mg IVP Q10M PRN; Protocol PRN Reason: SBP> or= 160 OR DBP> or= 110 Lidocaine HCl (Lidocaine 1% 20 Ml Mdv) 20 ml ID .ONCE PRN PRN Reason: PERINEAL REPAIR Stop: 09/29/23 06:12 Methylergonovine Maleate (Methylergonovine 0.2 Mg/Ml Vial) 0.2 mg IM .ONCE PRN PRN Reason: Hemorrhage Misoprostol (Misoprostol 200 Mcg Tablet) 600 mcg BC .ONCE PRN PRN Reason: Hemorrhage Misoprostol (Misoprostol 200 Mcg Tablet) [address] .ONCE PRN PRN Reason: Hemorrhage Nifedipine (Nifedipine 10 Mg Capsule) 10 - 20 mg PO Q20M PRN; Protocol PRN Reason: SBP> or= 160 OR DBP> or= 110 Ondansetron HCl (Ondansetron 4 Mg/2 Ml Vial) 8 mg IVP Q8HR PRN PRN Reason: Nausea / Vomiting Last Admin: 09/26/23 07:20 Dose: 8 mg Oxytocin (Oxytocin 10 Unit/Ml Vial) 10 unit IM .ONCE PRN PRN Reason: Step One if no IV access. Sodium Chloride (Sodium Chloride Flush 0.9% 10 Ml Syringe) 10 ml IVP PRN PRN PRN Reason: NEEDED PER PROVIDER ORDERS Terbutaline Sulfate (Terbutaline 1 Mg/Ml Vial) 0.25 mg SUBQ .ONCE PRN PRN Reason: Tachystole Norethindrone-E.estradiol-Iron [Kimber 24 Fe 1 mg-20 Mcg Tablet] 1 tab PO DAILY 05/24/22 Allergies/Adverse Reactions: Allergies Allergy/AdvReac Type Severity Reaction Status Date / Time No Known Drug Allergies Allergy Verified 06/19/22 18:03 Anes History & Medical History - Anesthetic History Anesthesia Complications: reports: No previous complications Family history of Anesthesia Complications: Denies Family history of Malignant Hyperthermia: Denies - Medical History Cardiovascular: reports: None Pulmonary: reports: None Gastrointestinal: reports: GERD Urinary: reports: None Neuro: reports: None Musculoskeletal: reports: None Endocrine/Autoimmune: reports: None Blood Disorders: reports: None Skin: reports: None Smoking Status: Never smoker Psychosocial: reports: Cannabis - Obstetrical History : 2 Parity: 0 Events: reports: Other (morbid obesity) Complications: reports: Other (morbid obesity) Exam General: Alert, Oriented x3, Cooperative Dental: WNL Mouth Openin Fingerbreadth Neck Mobility: Normal Mallampati classification: II Thyromental Distance: 4-6 cm Respiratory: Lungs clear Cardiovascular: Regular rate Plan Anesthesia Type: Epidural Consent for Procedure(s) Verified and Reviewed: Yes Code Status: Attempt Resuscitation ASA classification: 3-Severe systemic disease Is this case an emergency?: No
[2023-09-26] MEDS ORDERED: METOCLOPRAMIDE 10 MG/2 ML VIAL IVP PRN ×2 (10:00→12:11)
--- NOTE | 2023-09-26 10:53 | PROVIDER PROGRESS NOTE ---
Subjective - Prog Note Date Prog Note Date: 09/26/23 - Subjective Subjective: Patient having worsening pain with contractions. Requesting epidural for pain management. Objective - Vital Signs/Intake & Output Vital Signs: Vital Signs x48h Temp Pulse Pulse Resp BP BP Pulse Ox 09/26/23 09:03 97.6 F L 70 20 130/81 H 100 09/26/23 05:15 97.2 F L 76 20 141/82 H - Lab Results Fish Bones: 09/26/23 06:30 Other Labs: Lab Results x24hrs 09/26/23 09/26/23 Range/Units 06:30 06:30 WBC 10.8 (4.8-10.8) x10^3/uL RBC 4.04 L (4.20-5.40) 10^6/uL Hgb 11.4 L (12.0-16.0) g/dL Hct 35.8 L (37.0-47.0) % MCV 88.6 (81.0-99.0) fL MCH 28.2 (27.0-31.0) pg MCHC 31.8 L (32.0-36.0) g/dL RDW 15.3 H (12.0-15.0) % Plt Count 301 (130-450) 10^3/uL MPV 10.4 (7.9-10.8) fL Neut # (Auto) 8.8 H (1.5-6.6) 10^3/uL Lymph # (Auto) 1.4 L (1.5-3.5) 10^3/uL Hawkins # (Auto) 0.5 (0.0-1.0) 10^3/uL Eos # (Auto) 0.1 (0.0-0.7) 10^3/uL Baso # (Auto) 0.0 (0.0-0.1) 10^3/uL Absolute Nucleated RBC 0.00 x10^3/uL Nucleated RBC % 0.0 /100WBC Blood Type O POSITIVE Antibody Screen NEGATIVE Assessment/Plan - Problem List (1) and not yet delivered Impression: Intermittent monitoring secondary to body habitus and patient using tab for pain management. She is now requesting epidural. wellbeing has been reassuring. Cervical exam is 2/-2.
[2023-09-26] MEDS ORDERED: ROPIVACAINE 0.2% 200 MG/100 ML BAG EP ONE (11:13)
[2023-09-26] MEDS ORDERED: ROPIVACAINE 0.2% 200 MG/100 ML BAG EP PRN (12:11)
[2023-09-26] MEDS ORDERED: diphenhydrAMINE INJ 50 MG/ML VIAL IVP PRN (12:11)
[2023-09-26] MEDS ORDERED: NALBUPHINE 10 MG/ML AMP IVP PRN (12:11)
[2023-09-26] MEDS ORDERED: NALOXONE 0.4 MG/ML VIAL IVP PRN (12:11)
[2023-09-26] MEDS ORDERED: ePHEDrine 50 MG/ML VIAL IVP PRN (12:11)
--- NOTE | 2023-09-26 14:29 | PROVIDER PROGRESS NOTE ---
Labor Progress Note - Uterine Monitoring Uterine Monitoring Mode: positive: External toco Contraction Frequency (min/apart): 5 Contraction Intensity: positive: Strong Uterine Resting Tone: positive: Soft - Monitoring Monitor Mode: positive: External ultrasound Heart Rate Variability: positive: Moderate (6-25 bmp) Accelerations: positive: Present, 15x15 Decelerations: positive: None Strip Review: positive: Category I - Vaginal Exam Dilation (in cm): 5-6 Effacement (%): 90 Station: 0 Cervical Position: Midposition - Labor Progress Note Labor Progress Note/Additional Text: AROM with thick meconium. Discussed with patient and peds aware. wellbeing is reassuring. Patient is comfortable with epidural.
--- NOTE | 2023-09-26 19:24 | DELIVERY NOTE ---
Delivery Note - Labor Labor: positive: Spontaneous, Induced by ARM - Delivery Method Delivery Method: positive: Spontaneous vaginal delivery - Presentation Presentation: positive: Vertex - Nuchal Cord Nuchal Cord: positive: None - Anesthetic Anesthetic Type: - Amniotic Fluid Description Amniotic Fluid Description: positive: Thick meconium - Episiotomy Type Episiotomy Type: positive: None - Laceration Laceration: positive: 2nd degree - Suture Suture Type: positive: Vicryl Suture Size: positive: 3-0 - Delivery Outcome Delivery Outcome: positive: Livebirth - [place]: positive: Placed in direct skin contact with mother, Suctioned, Warmed, Dixie used sex: positive: Male - Cord Cord: positive: 3 vessels - Placenta Placenta: positive: Intact, Spontaneous - Estimated Blood Loss Estimated Blood Loss (in cc): 250 - Post Delivery Events Post Delivery Events: positive: No post delivery events - Delivery Comments (Free Text/Narrative) Delivery Comments (Free Text/Narrative): Stage I: Patient presented in labor AROM with thick meconium. FHTs remained reassuring throughout the first stage. Patient received an epidural for anesthesia. Stage II: Male infant was atraumatcally delivered from ROSAHN position. There was no nuchal cord. The anterior shoulder was delivered without difficulty followed by the posterior shoulder and body. Infant was vigorous at delivery. was bulb suctioned and cord was doubly clamped and cut. Infant was placed on mom. Weight and APGARS pending Stage III: Gentle cord traction and crede maneuver were used. Placenta delivered spontaneously. Placenta was noted to not be intact. 3 vessel cord. Course: Uterine tone was firm with massage after delivery of the placenta. Oxytocin was administered. A second-degree laceration was repaired with 3-0 Vicryl. EBL: 250 mL
[2023-09-26] MEDS ORDERED: SIMETHICONE CHEW 80 MG TABLET PO PRN (19:26)
[2023-09-26] MEDS ORDERED: LACTATED RINGERS 1,000 ML IV SCH (20:00)
[2023-09-26] MEDS: DOCUSATE SODIUM 100 MG CAPSULE PO PRN (20:10)
[2023-09-26] MEDS: ACETAMINOPHEN 500 MG TABLET PO SCH (20:11)
[2023-09-26] MEDS: IBUPROFEN 600 MG TABLET PO SCH (20:11)
[2023-09-27] MEDS: IBUPROFEN 600 MG TABLET PO SCH ×3 (02:24→16:06)
[2023-09-27] MEDS: ACETAMINOPHEN 500 MG TABLET PO SCH ×2 (04:04→13:12)
[2023-09-27] MEDS: DOCUSATE SODIUM 100 MG CAPSULE PO PRN (09:53)
--- NOTE | 2023-09-27 10:24 | PROVIDER PROGRESS NOTE ---
Subjective - Prog Note Date Prog Note Date: 09/27/23 Prog Note Time: 10:23 - Subjective Subjective: Patient is day 1 status postnormal spontaneous vaginal delivery. Patient is doing well this morning. She is ambulating, tolerating regular diet, spontaneously voiding. Lochia is equivalent to menses. She denies chest pain or shortness of breath. Objective - Vital Signs/Intake & Output Reviewed Vital Signs: Yes Vital Signs: Vital Signs x48h Temp Pulse Resp BP Pulse Ox 09/27/23 09:56 98.1 F 91 22 123/80 99 09/27/23 05:12 98.1 F 87 16 112/83 H 100 09/27/23 02:26 98.1 F 81 16 109/74 Intake & Output: Intake & Output 09/24/23 09/25/23 09/26/23 09/27/23 23:59 23:59 23:59 23:59 Intake Total 1250 Output Total 800 Balance -800 1250 - Objective General Appearance: positive: No acute distress Respiratory: positive: Breath sounds nml Cardiovascular: positive: Regular rate & rhythm Abdomen: positive: Non-tender (difficulty palpating fundus) Extremities: positive: Non-tender, Pedal edema (2+) Neurologic/Psychiatric: positive: Mood/affect nml - Lab Results Fish Bones: 09/26/23 06:30 Assessment/Plan - Problem List (1) and not yet delivered Impression: day 1. Patient is doing well. Counseled on signs and symptoms of depression.
[2023-09-28] MEDS: IBUPROFEN 600 MG TABLET PO SCH ×2 (03:02→09:29)
[2023-09-28] MEDS: ACETAMINOPHEN 500 MG TABLET PO SCH ×2 (03:03→07:57)
[2023-09-28 09:37] VITALS: BP 123/73; O2SAT 99
--- NOTE | 2023-09-28 12:49 | Discharge Plan ---
Discharge Plan Problem Reviewed?: Yes Disposition: Home, Self Care Condition: Good Prescriptions: Ibuprofen [Motrin] 600 mg PO Q6H PRN #30 tab PRN Reason: Pain Instruction Topics: Vaginal After, Depression No Smoking: If you smoke, Please STOP! Call for help. Follow-up with: Tish Boyer MD [Provider Admit Priv/Credential] -
--- NOTE | 2023-09-28 12:49 | DISCHARGE SUMMARY ---
Discharge Summary Admit Date: 09/26/23 Discharge Date: 09/28/23 Discharging Provider: Drew Fox MD Code Status: Attempt Resuscitation Condition at Discharge: Good Discharge Disposition: 01 Home, Self Care - DIAGNOSES Admission Diagnoses: 40 weeks gestation Term labor Morbid obesity Discharge Diagnoses with Status of Each Condition: 40 weeks gestation Term labor Morbid obesity Delivery of live tolliver Status post spontaneous vaginal delivery - HPI History of Present Illness: Subjective Patient reports she is doing well. Lochia appropriate. Denies heavy bleeding. Ambulating. Pelvic and abdominal pain well-controlled. Tolerating oral intake. Diet: Regular. Voiding without difficulty. Passing flatus. Denies BM. Patient is bonding with baby in room Breast feeding going well. Supplementing with bottles. Denies feeling lightheaded, dizzy or excessively fatigued. Objective General: Alert, oriented, no apparent distress. Cardiovascular: Regular rate. Regular rhythm. Lungs: No increased work of breathing. Abdomen: Uterus firm. Below umbilicus. No guarding or rebound. Extremities: No pain on palpation. No cords palpated. Distal pulses intact. - HOSPITAL COURSE Hospital Course: At 40 weeks gestation for term labor. She had AROM performed with thick meconium. Difficulty tracing heart rate, so a scalp electrode was placed. She received an epidural for pain control. Delivery was uncomplicated other than a second-degree midline laceration that was repaired. course was unremarkable and she was discharged on day 2. - ALLERGIES Allergies/Adverse Reactions: Allergies Allergy/AdvReac Type Severity Reaction Status Date / Time shellfish derived Allergy Anaphylaxis Verified 09/26/23 19:26 - MEDICATIONS Home Medications: Ambulatory Orders Medication Instructions Recorded Confirmed Norethindrone-E.estradiol-Iron 1 tab PO DAILY 05/24/22 05/24/22 [Kimber 24 Fe 1 mg-20 Mcg Tablet] Prochlorperazine [Compazine] 5 mg PO Q6H PRN #14 tablet 05/24/22 hydrOXYzine HCL [Hydroxyzine HCl] 25 mg PO TID PRN #30 tablet 06/19/22 methylPREDNISolone [Medrol Dose 1 each PO .PACKAGEINSTRUCTIONS 6 06/19/22 Pack] Days #1 each Ibuprofen [Motrin] 600 mg PO Q6H PRN #30 tab 09/28/23 - LABS Result Diagrams: 09/26/23 06:30 - FOLLOW UP Follow Up: With [facility] in 1 week - TIME SPENT Time Spent in Discharge (Minutes): 20
--- NOTE | 2023-09-28 13:39 | Labor Flowsheet ---
Labor Flowsheet Datetime Report Generated by CPN: 09/28/2023 13:39 Datetime: 09/28/2023 09:26 VITAL SIGNS NBP Sys/Elda/Mean (mmHg): 123 : 73 : 81 Pulse: 111 Datetime: 09/27/2023 18:19 SpO2 (%): 100 Datetime: 09/26/2023 20:03 Stage of : Datetime: 09/26/2023 20:00 Respirations: 16 Temperature (C): 37.1 Temperature Route: Oral PAIN Pain Scale: 0 Datetime: 09/26/2023 19:45 Bedside Blood Glucose: 0 Datetime: 09/26/2023 17:57 Preparation for Delivery: FSE Removed Intact Datetime: 09/26/2023 17:54 LaborFlag: Labor Datetime: 09/26/2023 17:45 UTERINE ACTIVITY Monitor Mode: Internal Frequency (min): 2-3 Quality: Strong Duration (sec): 50-60 Pattern: Normal: <= 5 Contractions in 10 Minutes Resting Tone (Palpate): Relaxed ASSESSMENT A Monitor Mode: Internal Scalp Electrode Variability: Moderate 6-25 bpm Decelerations: Early; Variable Category: Category II Comments: pushing Datetime: 09/26/2023 17:30 COMMUNICATION Communication: RN at Bedside; Provider at Bedside Datetime: 09/26/2023 17:16 FHR Baseline Changes: No Baseline Change Datetime: 09/26/2023 17:00 FHR Baseline Rate : 135 Accelerations: 15X15 Actions for Decelerations: Provider Notified Datetime: 09/26/2023 16:58 I/O Interventions: Rees Discontinued Patient Care Comments: 200mL Datetime: 09/26/2023 16:56 STAGE 2 Pushing: Coached on Pushing; Urge to Push Pushing Position: Pushing with Contractions; Pushing Right Side Pushing Progress: Descent with Pushing Datetime: 09/26/2023 16:53 Communication Comments: Dr. Baltes Datetime: 09/26/2023 16:31 Stage 2 Comments: practice push, descent noted , provider notified Datetime: 09/26/2023 16:26 VAGINAL EXAM Dilatation (cm): 10.0 Effacement (%): 100 Station: 1 Exam by: Júnior Smalls RN Datetime: 09/26/2023 15:33 Monitor Interventions for FHR: FSE Applied Datetime: 09/26/2023 15:00 Contraction Comments: Not calculating MVU's per provider Datetime: 09/26/2023 14:30 Monitor Interventions for UA: IUPC Inserted Datetime: 09/26/2023 14:24 Membrane Status: Ruptured Membranes Rupture Method: Artificial Amniotic Fluid Color: Heavy Meconium Amniotic Fluid Amount: Moderate Datetime: 09/26/2023 12:42 PATIENT CARE IV/Blood Work: IV Bolus Started; IV Bolus Given ml @ 300 Datetime: 09/26/2023 11:52 Epidural Procedure: Completed Epidural Procedure Other: Pump Started Datetime: 09/26/2023 11:48 Patient Position/Activity: Left Tilt Datetime: 09/26/2023 11:20 ANESTHESIA Anesthesia Plans: Epidural Epidural Positioning: Sitting Anesthesia Comments: start Datetime: 09/26/2023 10:45 Pain Coping: Requesting Pain Medication or Epidural Pain Assessment Comments: Simone Wells CRNA contacted by phone to request epidural placement Datetime: 09/26/2023 10:16 Comfort Measures: Hot Shower/Tub/Spa Datetime: 09/26/2023 09:49 Antiemetics/Antacids: Zofran (mg) @ 5 Datetime: 09/26/2023 09:15 Vaginal Bleeding: Normal Show Cervix, Position: Midposition Datetime: 09/26/2023 07:24 MEDICATIONS Analgesics/Sedatives: Fentanyl (mcg) @ 50 Datetime: 09/26/2023 07:10 Provider Notified (Name): Dr Baltes Datetime: 09/11/2023 15:39 Membranes Ruptured Date/Time: 09/26/2023 14:24
== END 2023-09-28 13:00 | disposition home or self-care (01) | DRG 807 ==
LOC: WFO 05:03 → FBP 05:05 → WFO 06:12
PROVIDERS: ADMIT Obstetrics & Gynecology Obstetrics; ATTEND Obstetrics & Gynecology
PROC: 10907ZC Drainage of Amniotic Fluid, Therapeutic from Products of Conception, Via Natural or Artificial Opening (ICD-10-PCS; principal; 2023-09-26)
PROC: 10E0XZZ Delivery of Products of Conception, External Approach (ICD-10-PCS; 2023-09-26)
PROC: 0KQM0ZZ Repair Perineum Muscle, Open Approach (ICD-10-PCS; 2023-09-26)
PROC: 10H073Z Insertion of Monitoring Electrode into Products of Conception, Via Natural or Artificial Opening (ICD-10-PCS; 2023-09-26)
DX: O99.214 Obesity complicating childbirth (principal); Z37.0 Single live birth; E66.01 Morbid (severe) obesity due to excess calories; O77.0 Labor and delivery complicated by meconium in amniotic fluid; O70.1 Second degree perineal laceration during delivery; Z3A.40 40 weeks gestation of pregnancy
CPT/HCPCS: 59409; 85025; 86850; 86900; 86901; 99215; A9270; J2765; J7120; 59025

== ENCOUNTER 2024-03-04 13:50 | Emergency (ER) | payer MEDICAID ==
[2024-03-04 14:32] LABS: BILIRUBIN,URINE LARGE (NEGATIVE); GLUCOSE, URINE (UA) NEGATIVE (NEGATIVE); KETONES,URINE (UA) TRACE mg/dL (NEGATIVE)
[2024-03-04 14:33] LABS: CLARITY,URINE CLEAR (CLEAR)
--- NOTE | 2024-03-04 14:33 | ED Physician Documentation ---
PD HPI ABD PAIN - Stated complaint Stated Complaint: UPPER ABD PX,N/V,EARL - Chief complaint Chief Complaint: Abd Pain - Additional information Additional information: 24-year-old female presents the emergency department for right upper quadrant pain. She recently had a baby about 5 months ago but no history of ever experiencing gallstones or right upper quadrant pain. Patient reports right upper quadrant pain started on Thursday which is been experiencing nausea vomiting since then and today started Experiencing ceron stools. PD PAST MEDICAL HISTORY - Past Medical History Cardiovascular: None Respiratory: None Neuro: None Endocrine/Autoimmune: None GI: GERD : None Musculoskeletal: None Derm: None Other Past Medical History: Smokes marijuana daily - Past Surgical History Past Surgical History: No - Present Medications Home Medications: Ambulatory Orders Medication Instructions Recorded Confirmed No Known Home Medications 03/04/24 03/04/24 - Allergies Allergies/Adverse Reactions: Allergies Allergy/AdvReac Type Severity Reaction Status Date / Time shellfish derived Allergy Anaphylaxis Verified 03/04/24 14:04 - Social History Does the pt smoke?: Yes Smoking Status: Current every day smoker Does the pt drink ETOH?: No Does the pt have substance abuse?: No Substance Use and Type: Marijuana PD ED PE NORMAL - Vitals Vital signs reviewed: Yes - General General: Alert and oriented X 3, No acute distress, Well developed/nourished - Cardiac Cardiac: RRR - Abdomen Abdomen: Normal bowel sounds, Soft, Non distended, Other (RUQ tenderness) - Back Back: No CVA TTP - Derm Derm: Normal color, Warm and dry, No rash - Extremities Extremities: No deformity, No edema - Neuro Neuro: Alert and oriented X 3, slot floor person 2-12 intact, No motor deficit, No sensory deficit, Normal speech - Psych Psych: Normal mood, Normal affect Results - Vitals Vitals: Vital Signs - 24 hr 03/04/24 03/04/24 03/04/24 14:00 15:20 17:00 Temperature 36.7 C Heart Rate 109 H 66 87 Respiratory 18 16 18 Rate Blood Pressure 141/90 H 124/100 H 138/109 H O2 Saturation 99 98 99 03/04/24 03/04/24 03/04/24 19:00 19:08 20:36 Temperature 36.3 C L Heart Rate 95 100 97 Respiratory 18 16 16 Rate Blood Pressure 119/86 H 119/86 H 139/93 H O2 Saturation 98 99 97 03/04/24 21:15 Temperature 36.1 C L Heart Rate 90 Respiratory 16 Rate Blood Pressure 133/92 H O2 Saturation 99 Oxygen O2 Source Room air - Labs Labs: Laboratory Tests 03/04/24 03/04/24 03/04/24 14:26 14:50 14:50 WBC 7.6 RBC 4.46 Hgb 11.9 L Hct 37.3 MCV 83.6 MCH 26.7 L MCHC 31.9 L RDW 16.4 H Plt Count 362 MPV 10.1 Neut # (Auto) 5.1 Lymph # (Auto) 1.8 Baker # (Auto) 0.6 Eos # (Auto) 0.1 Baso # (Auto) 0.1 Absolute Nucleated RBC 0.00 Nucleated RBC % 0.0 Sodium 137 Potassium 4.1 Chloride 103 Carbon Dioxide 24 Anion Gap 10.0 BUN 10 Creatinine 0.5 L Estimated GFR (MDRD) 149 Glucose 122 H Calcium 10.3 Total Bilirubin 1.6 H AST 553 H ALT 1346 H Alkaline Phosphatase 239 H Total Protein 8.2 Albumin 4.6 Globulin 3.6 Albumin/Globulin Ratio 1.3 Lipase < 10 L Urine Color ORANGE Urine Clarity CLEAR Urine pH 6.0 Ur Specific Ransom >=1.030 H Urine Protein Urine Glucose (UA) NEGATIVE Urine Ketones TRACE Urine Occult Blood Urine Nitrite Urine Bilirubin LARGE H Urine Urobilinogen Ur Leukocyte Esterase Urine RBC 0-5 Urine WBC 0-3 Ur Squamous Epith Cells MANY Squamous H Amorphous Sediment Moderate Urine Bacteria Moderate H Urine Mucus Marked Strands Ur Microscopic Review INDICATED Urine Culture Comments NOT INDICATED Urine HCG, Qual NEGATIVE - Rads (name of study) abdominal ultra sound Relevant Findings:: Final report received, EMP independent interpretation of test, Other (small mobile gallstones in gallbladder, no cholecystitis. Mild e xtra hepatic biliary dilation.) abd pelvis CT Relevant Findings:: Final report received, EMP independent interpretation of test, Other (mild dilation of the biliary tree, mild of calcium present in gallbladder.) PD Medical Decision Making - ED course ED course: 24-year-old female presents emergency department for right upper quadrant pain. Differentials include but are not limited to cholecystitis, cholangitis, atypical appendicitis. Abdominal exam without peritonitis. CT abdomen pelvis was complete with contrast for further evaluation and it did reveal dilation of the biliary tree as well as milk of calcium present in the gallbladder. Her labs were also found to be quite abnormal with severely elevated LFTs. Bilirubin 1.6, AST 553, ALT 1346, alk phos 239. She has no leukocytosis, hemoglobin 11.9. Because of this we decided to pursue a right upper quadrant ultrasound for further evaluation which revealed small mobile gallstones within the gallbladder with no sonographic signs of cholecystitis. The CBD was dilated at 7.7 mm. Because of this I was concerned for choledocholithiasis. I reach out to [facility] to see if they be willing to accept the patient for ERCP removal and I spoke with GI Dr. Webb who said that patient bili is not significantly elevated and that we cannot confidently say that there is a stone in the CBD and given that there is no cholangitis and no leukocytosis and no fevers here in the emergency department she does not meet criteria for an ERCP. I spoke with Dr. Fernandez who says that patient actually does need an ERCP but if patient wanted to go home overnight she could check back in in the morning for an MRCP to attempt to transfer her again tomorrow for ERCP elsewhere. Patient wanted to do this plan and opted to discharge home. Patient was given very strict return precautions she was given antinausea medications as well as take- home pack of oxycodone and told to check back into the emergency department tomorrow for MRCP and that we would work on getting her into another hospital with an ERCP tomorrow. Patient understands the very strict return precautions. I am prescribing a short course of short-acting opioid pain medication for this patient. 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 I have discussed that the opioids are for short term therapy only, and will not be refilled from the ED. Departure - Departure Disposition: 01 Home, Self Care Clinical Impression: Choledocholithiasis, Elevated liver enzymes, Gallstones Instructions: ERCP Comments: Thank you for trusting us with your care. I am highly suspicious that you have a choledocholithiasis. I highly recommend that you receive something called an MRCP for further evaluation of your right upper quadrant pain. As we discussed we offered to keep you here in the emergency department overnight for observation for pain control and nausea control to help with your symptoms until you are able to get the MRCP tomorrow but you opted to go home and be with your baby until you can have further evaluation in the emergency department tomorrow. Please come back if your symptoms get any worse or if you are unable to control your symptoms with the medications that we are sending you home on. Please follow-up with a emergency department for an MRCP tomorrow for further evaluation to see if he needs something called an ERCP. EXAM: [id number] US/ABDLTD ([id number]) PROCEDURE: Abdomen Limited INDICATIONS: RUQ pain, elevated LFT TECHNIQUE: Real-time focused scanning was performed of the abdomen, with image documentation. COMPARISONS: None. FINDINGS: Liver: The liver demonstrates mildly enlarged size. The liver demonstrates mildly increased echogenicity, which limits ultrasound sensitivity for detection of masses. The main portal vein demonstrates normal size and hepatopedal flow. Gallbladder: Small mobile gallstones can be seen within the gallbladder. The gallbladder wall does not appear thickened. There is no specific pericholecystic fluid. The sonographic Mccormick's sign is negative. Biliary ducts: Intrahepatic bile ducts are non-dilated. Extrahepatic bile duct caliber measures 7 8 mm. Normal is 6-7 mm or less in diameter, or 10 mm or less post- cholecystectomy. Pancreas: Visualized portions of the pancreas are sonographically normal. Right kidney: Normal in size and echotexture. Right kidney measures 11.8 cm long. No hydronephrosis or nephrolithiasis. No solid masses. No complex renal cystic lesions which require follow-up. Aorta: Visualized aorta is normal in caliber at less than 3 cm. IVC: Intrahepatic inferior vena cava is patent. Miscellaneous: No free abdominal fluid. IMPRESSION: Small, mobile gallstones can be seen within gallbladder, without additional sonographic signs of cholecystitis. Mild extra hepatic biliary ductal dilatation. - If clinically appropriate, please consider a dedicated MRCP for further evaluation (assuming that there is no contraindication). Note: Concordant preliminary findings given by the supervisor concrete pipe plant upon the completion of the examination to Dr. Peralta. Reviewed by: Denis John MD on 03/04/2024 6:40 PM AKCHARLEY Approved by: Denis John MD on 03/04/2024 6:40 PM AKDT Station ID: [id number] Report Electronically Signed by Denis John MD 03/04/24193703/04/[id number] cc: Carter Peralta MD EXAM: [id number] CT/ABPEW ([id number]) PROCEDURE: Abdomen/Pelvis W INDICATIONS: RUQ pain CONTRAST: 100ml omni 300 TECHNIQUE: After the administration of intravenous contrast, a CT scan of the abdomen and pelvis was performed. Images were recorded and evaluated at appropriate window settings. Reformats: coronal and sagittal. For radiation dose reduction, the following was used: automated exposure control, adjustment of mA and/or kV according to patient size. COMPARISON: None. FINDINGS: Image quality: Diagnostic. Lower chest: Unremarkable. Liver: No solid mass. Gallbladder and biliary tree: There is possible milk of calcium in the fundus of the gallbladder. The gallbladder wall is not thickened. There is mild dilatation of the extrahepatic duct and central intrahepatic ducts. No radiopaque stone is noted in the distal duct. However, the distal common duct stone may potentially be present. Spleen: No splenomegaly. Pancreas: No pancreatic ductal dilation. Adrenals: No adrenal nodule. Kidneys and ureters: No hydronephrosis. No renal cystic lesion which requires follow up. No solid mass. Stomach, bowel and peritoneum: No bowel distension. No pathologic free fluid. Lymph nodes: No central or retroperitoneal adenopathy. Vessels: No infrarenal aortic aneurysm. PELVIS Reproductive organs: Unremarkable. Bladder: No abnormal wall thickening, accounting for underdistention. Pelvic lymph nodes: No pelvic adenopathy by size criteria. Bones: No aggressive osseous abnormality. Other: No significant ventral or inguinal hernia. IMPRESSION: 1. Milk of calcium present in the gallbladder. 2. Mild dilatation of the biliary tree. 3. Otherwise unremarkable study. Comment: Consider MRCP if suspect choledochal stone. Reviewed by: Magdy Erickson MD on 03/04/2024 4:31 PM PDT Approved by: Magdy Erickson MD on 03/04/2024 4:31 PM PDT Station ID: [id number] Report Electronically Signed by Magdy Erickson MD 03/04/24 1628 03/04/24 1631 cc: Fabian Wallace DNP Forms: PCP List Discharge Date/Time: 03/04/24 21:30
[2024-03-04 14:34] LABS: HCG UR QUAL NEGATIVE
[2024-03-04 14:37] LABS: AMORPHOUS SEDIMENT,UR Moderate /LPF; BACTERIA,URINE Moderate /HPF (None Seen); RBC,URINE 0-5 /HPF (0-5); SQUAMOUS EPITHELIAL CELL,UR MANY Squamous (<= Few); WBC,URINE 0-3 /HPF (0-5)
[2024-03-04 14:38] LABS: MUCUS,URINE Marked Strands
[2024-03-04] MEDS: ONDANSETRON 4 MG/2 ML VIAL IVP STA (14:56)
[2024-03-04] MEDS: HYDROmorphone 0.5 MG/0.5 ML SYRINGE IVP STA (14:58)
[2024-03-04] MEDS: SODIUM CHLORIDE 0.9% 1,000 ML IV ONE ×2 (14:58→20:22)
[2024-03-04 15:04] LABS: BASOPHILS # (AUTO) 0.1 10^3/uL (0.0-0.1); BASOPHILS % (AUTO) 0.8 %; EOSINOPHILS # (AUTO) 0.1 10^3/uL (0.0-0.7); EOSINOPHILS % (AUTO) 1.6 %; HCT - HEMATOCRIT 37.3 % (37.0-47.0); HGB - HEMOGLOBIN 11.9 g/dL (12.0-16.0); LYMPHOCYTES # (AUTO) 1.8 10^3/uL (1.5-3.5); MEAN CORPUSCULAR HEMOGLOBIN 26.7 pg (27.0-31.0); MEAN CORPUSCULAR HGB CONC 31.9 g/dL (32.0-36.0); MEAN CORPUSCULAR VOLUME 83.6 fL (81.0-99.0); MEAN PLATELET VOLUME 10.1 fL (7.9-10.8); MONOCYTES # (AUTO) 0.6 10^3/uL (0.0-1.0); MONOCYTES % (AUTO) 7.2 %; NEUTROPHILS # (AUTO) 5.1 10^3/uL (1.5-6.6); PLT - PLATELET COUNT 362 10^3/uL (130-450); RED BLOOD COUNT 4.46 10^6/uL (4.20-5.40); RED CELL DISTRIBUTION WIDTH 16.4 % (12.0-15.0); WHITE BLOOD COUNT 7.6 x10^3/uL (4.8-10.8)
[2024-03-04 15:11] LABS: ALBUMIN 4.6 g/dL (3.2-5.5); BILIRUBIN,TOTAL 1.6 mg/dL (0.2-1.0); CALCIUM 10.3 mg/dL (8.5-10.3); CARBON DIOXIDE - CO2 24 mmol/L (21-32); CHLORIDE 103 mmol/L (101-111); POTASSIUM 4.1 mmol/L (3.5-4.5); SODIUM 137 mmol/L (135-145)
[2024-03-04 15:19] LABS: LIPASE < 10 U/L (11-82)
[2024-03-04 15:41] LABS: ALBUMIN/GLOBULIN RATIO 1.3 (1.0-2.2); ALKALINE PHOSPHATASE 239 IU/L (42-121); AST ASPARTATE AMINOTRANSFERASE 553 IU/L (10-42); BUN - BLOOD UREA NITROGEN 10 mg/dL (6-20); CREATININE 0.5 mg/dL (0.6-1.3); GFR - MDRD 149 (>89); GLUCOSE 122 mg/dL (74-104); TOTAL PROTEIN 8.2 g/dL (6.4-8.9)
[2024-03-04] MEDS ORDERED: iohexoL-300 100 ML VIAL ONE (15:51)
[2024-03-04 16:21] LABS: ALT ALANINE AMINOTRANSFERASE 1346 IU/L (10-60)
--- NOTE | 2024-03-04 16:32 | CT Report ---
PROCEDURE: Abdomen/Pelvis W INDICATIONS: RUQ pain CONTRAST: 100ml omni 300 TECHNIQUE: After the administration of intravenous contrast, a CT scan of the abdomen and pelvis was performed. Images were recorded and evaluated at appropriate window settings. Reformats: coronal and sagittal. F or radiation dose reduction, the following was used: automated exposure control, adjustment of mA and /or kV according to patient size. COMPARISON: None. FINDINGS: Image quality: Diagnostic. Lower chest: Unremarkable. Liver: No solid mass. Gallbladder and biliary tree: There is possible milk of calcium in the fundus of the gallbladder. The gallbladder wall is not thickened. There is mild dilatation of the extrahepatic duct and central int rahepatic ducts. No radiopaque stone is noted in the distal duct. However, the distal common duct sto ne may potentially be present. Spleen: No splenomegaly. Pancreas: No pancreatic ductal dilation. Adrenals: No adrenal nodule. Kidneys and ureters: No hydronephrosis. No renal cystic lesion which requires follow up. No solid mas s. Stomach, bowel and peritoneum: No bowel distension. No pathologic free fluid. Lymph nodes: No central or retroperitoneal adenopathy. Vessels: No infrarenal aortic aneurysm. PELVIS Reproductive organs: Unremarkable. Bladder: No abnormal wall thickening, accounting for underdistention. Pelvic lymph nodes: No pelvic adenopathy by size criteria. Bones: No aggressive osseous abnormality. Other: No significant ventral or inguinal hernia. IMPRESSION: 1. Milk of calcium present in the gallbladder. 2. Mild dilatation of the biliary tree. 3. Otherwise unremarkable study. Comment: Consider MRCP if suspect choledochal stone. Reviewed by: Magdy Erickson MD on 03/04/2024 4:31 PM PDT Approved by: Magdy Erickson MD on 03/04/2024 4:31 PM PDT Station ID: [id number]
[2024-03-04] MEDS: HYDROmorphone 1 MG/ML CARPUJECT IVP STA (16:53)
[2024-03-04] MEDS: PROCHLORPERAZINE 10 MG/2 ML VIAL IVP STA (18:12)
[2024-03-04] MEDS: iohexoL-300 100 ML VIAL IVP ONE (19:06)
--- NOTE | 2024-03-04 19:42 | Ultrasound Report ---
PROCEDURE: Abdomen Limited INDICATIONS: RUQ pain, elevated LFT TECHNIQUE: Real-time focused scanning was performed of the abdomen, with image documentation. COMPARISONS: None. FINDINGS: Liver: The liver demonstrates mildly enlarged size. The liver demonstrates mildly increased echogeni city, which limits ultrasound sensitivity for detection of masses. The main portal vein demonstrates normal size and hepatopedal flow. Gallbladder: Small mobile gallstones can be seen within the gallbladder. The gallbladder wall does n ot appear thickened. There is no specific pericholecystic fluid. The sonographic Mccormick's sign is neg ative. Biliary ducts: Intrahepatic bile ducts are non-dilated. Extrahepatic bile duct caliber measures 7 8 mm. Normal is 6-7 mm or less in diameter, or 10 mm or less post-cholecystectomy. Pancreas: Visualized portions of the pancreas are sonographically normal. Right kidney: Normal in size and echotexture. Right kidney measures 11.8 cm long. No hydronephrosis or nephrolithiasis. No solid masses. No complex renal cystic lesions which require follow-up. Aorta: Visualized aorta is normal in caliber at less than 3 cm. IVC: Intrahepatic inferior vena cava is patent. Miscellaneous: No free abdominal fluid. IMPRESSION: Small, mobile gallstones can be seen within gallbladder, without additional sonographic signs of chol ecystitis. Mild extra hepatic biliary ductal dilatation. - If clinically appropriate, please consider a dedicated MRCP for further evaluation (assuming that t here is no contraindication). Note: Concordant preliminary findings given by the assembler bonding upon the completion of the examination to Dr. Peralta. Reviewed by: Denis John MD on 03/04/2024 6:40 PM KIRIT Approved by: Denis John MD on 03/04/2024 6:40 PM KIRIT Station ID: [id number]
[2024-03-04] MEDS: DROPERIDOL 5 MG/2 ML VIAL IVP STA (20:22)
--- NOTE | 2024-03-04 21:00 | CONSULTATION NOTE ---
Referring Provider Consult Date: 03/04/24 Chief Complaint - Chief Complaint Chief Complaint: abdominal pain and nausea for about 5 days History of Present Illness - History Obtained From Records Reviewed: yes History obtained from: pt Exam Limitations: none - History of Present Illness HPI Comment/Other: upper abdominal pain, nausea, orange urine for about 5 days. not improving. seen in ED US and ct scan dilated liver ducts us gallstones lfts very elevated no gallbladder inflammation by ct or US. no fevers History - Past Medical History Cardiovascular: reports: None Respiratory: reports: None Neuro: reports: None Endocrine/Autoimmune: reports: None GI: reports: GERD : reports: None Musculoskeletal: reports: None Derm: reports: None MRSA Hx?: No Other Past Medical History: Smokes marijuana daily Meds/Allgy - Home Medications Home Medications: Ambulatory Orders Medication Instructions Recorded Confirmed No Known Home Medications 03/04/24 03/04/24 - Allergies Allergies/Adverse Reactions: Allergies Allergy/AdvReac Type Severity Reaction Status Date / Time shellfish derived Allergy Anaphylaxis Verified 03/04/24 14:04 Review of Systems - Other Findings Other Findings: 10 pt ros as above otherwise unremarkable Exam - Vital Signs Vital Signs: Vital Signs x48h Temp Pulse Resp BP Pulse Ox 03/04/24 20:36 97 16 139/93 H 97 03/04/24 19:08 36.3 C L 100 16 119/86 H 99 03/04/24 19:00 95 18 119/86 H 98 03/04/24 17:00 87 18 138/109 H 99 03/04/24 15:20 66 16 124/100 H 98 03/04/24 14:00 36.7 C 109 H 18 141/90 H 99 - Physical Exam General Appearance: positive: Alert, Mild distress, Other (wants care soon. does not want to sleep in the hospital and wait for mrcp tomorrow) Eyes Bilateral: positive: PERRL, EOMI Respiratory: positive: No respiratory distress Abdomen: positive: No distention Neurologic/Psychiatric: positive: Oriented x3 Conclusion/Plan - Problem List (1) Choledocholithiasis Conclusion/Plan: she clearly has choledocholithiasis clinically and is not improving over the last 5 days. lfts remain elevated and urine remains orange. she does not have cholecystitis. we discussed [facility] does not have the expertise or equipment to help with her liver duct obstruction with gallstones. [facility] is insisting on mrcp prior to accepting the patient to [facility]. MRCP is not available until the morning. James symptoms have been unpleasant; however, stable for several days. She does not have infection. She prefers to go home and go to a hospital that offers a higher level of care if she is not improving. I believe this is safe and reasonable. I believe as she does she would be more comfortable in her own bed than in our ED department on a stretcher overnight. - Lab Results Fish Bones: 03/04/24 14:50 03/04/24 14:50
[2024-03-04] MEDS: ONDANSETRON ODT 4 MG Prepack 2 TL PRN (21:24)
[2024-03-04] MEDS: oxyCODONE/ACET 5/325 Prepack 4 PO STA (21:25)
[2024-03-04 21:40] VITALS: BP 133/92; O2SAT 99
[2024-03-07 06:08] LABS: HBsAG SCREEN Negative (Negative); HCV AB Non Reactive (Non Reactive); HEPATITIS B CORE IGM AB Negative (Negative)
== END 2024-03-04 21:30 | disposition home or self-care (01) ==
LOC: ED 13:50
DX: K80.70 Calculus of gallbladder and bile duct without cholecystitis without obstruction (principal); R74.8 Abnormal levels of other serum enzymes; K21.9 Gastro-esophageal reflux disease without esophagitis; F17.200 Nicotine dependence, unspecified, uncomplicated
CPT/HCPCS: 36415; 74177; 76705; 80053; 80074; 81001; 81025; 83690; 85025; 96374; 96375; 96376; 99285; A9270; J1170; Q9967; 81003; 87086

== ENCOUNTER 2024-03-15 18:12 | Emergency (ER) | payer MEDICAID ==
[2024-03-15 18:54] LABS: BILIRUBIN,URINE SMALL (NEGATIVE); GLUCOSE, URINE (UA) NEGATIVE (NEGATIVE); KETONES,URINE (UA) NEGATIVE (NEGATIVE); LEUKOCYTE ESTERASE, URINE MODERATE (NEGATIVE); NITRITE,URINE NEGATIVE (NEGATIVE); OCCULT BLOOD,URINE LARGE (NEGATIVE); PH,URINE 6.5 PH (5.0-7.5); PROTEIN,URINE 30 mg/dL (NEGATIVE); UROBILINOGEN,URINE 0.2 (NORMAL) E.U./dL (NORMAL)
[2024-03-15 18:56] LABS: BASOPHILS # (AUTO) 0.1 10^3/uL (0.0-0.1); BASOPHILS % (AUTO) 0.4 %; EOSINOPHILS # (AUTO) 0.2 10^3/uL (0.0-0.7); EOSINOPHILS % (AUTO) 1.4 %; HCT - HEMATOCRIT 33.7 % (37.0-47.0); HGB - HEMOGLOBIN 10.2 g/dL (12.0-16.0); LYMPHOCYTES # (AUTO) 2.4 10^3/uL (1.5-3.5); LYMPHOCYTES % (AUTO) 14.8 %; MEAN CORPUSCULAR HEMOGLOBIN 26.1 pg (27.0-31.0); MEAN CORPUSCULAR HGB CONC 30.3 g/dL (32.0-36.0); MEAN CORPUSCULAR VOLUME 86.2 fL (81.0-99.0); MONOCYTES # (AUTO) 1.2 10^3/uL (0.0-1.0); MONOCYTES % (AUTO) 7.2 %; NEUTROPHILS # (AUTO) 12.3 10^3/uL (1.5-6.6); NEUTROPHILS % (AUTO) 75.1 %; PLT - PLATELET COUNT 528 10^3/uL (130-450); RED BLOOD COUNT 3.91 10^6/uL (4.20-5.40); RED CELL DISTRIBUTION WIDTH 18.2 % (12.0-15.0); WHITE BLOOD COUNT 16.3 x10^3/uL (4.8-10.8)
[2024-03-15 18:56] LABS: CLARITY,URINE SL. CLOUDY (CLEAR); HCG UR QUAL NEGATIVE
[2024-03-15 19:07] LABS: ALBUMIN 3.5 g/dL (3.2-5.5); ALBUMIN/GLOBULIN RATIO 0.9 (1.0-2.2); BILIRUBIN,TOTAL 0.4 mg/dL (0.2-1.0); CALCIUM 9.6 mg/dL (8.5-10.3); CREATININE 0.6 mg/dL (0.6-1.3); POTASSIUM 2.8 mmol/L (3.5-4.5); TOTAL PROTEIN 7.2 g/dL (6.4-8.9)
[2024-03-15 19:09] LABS: BACTERIA,URINE Rare /HPF (None Seen); EPITHELIAL CELLS,UR FEW Transitional /HPF (<= Few); RBC,URINE TNTC /HPF (0-5); SQUAMOUS EPITHELIAL CELL,UR MANY Squamous (<= Few); WBC,URINE >25 /HPF (0-5)
[2024-03-15 20:02] LABS: AMPHETAMINE SCREEN,URINE NEGATIVE (NEGATIVE); BARBITURATE SCREEN,UR NEGATIVE (NEGATIVE); BENZODIAZEPINES SCREEN, URINE NEGATIVE (NEGATIVE); BUPRENORPHINE SCREEN, URINE NEGATIVE (NEGATIVE); COCAINE SCREEN URINE NEGATIVE (NEGATIVE); METHADONE SCREEN, URINE NEGATIVE (NEGATIVE); METHAMPHETAMINES SCREEN, URINE NEGATIVE (NEGATIVE); OPIATE SCREEN, URINE NEGATIVE (NEGATIVE); OXYCODONE SCREEN, URINE NEGATIVE (NEGATIVE); THC CANNABINOID SCREEN, URINE POSITIVE (NEGATIVE); TRICYCLIC ANTIDEPRESSANT,URINE NEGATIVE (NEGATIVE)
--- NOTE | 2024-03-15 20:14 | ED Physician Documentation ---
PD HPI ABD PAIN - Stated complaint Stated Complaint: VOMITING/ABD PX/POST SURG - Chief complaint Chief Complaint: Abd Pain - History obtained from History obtained from: Patient - Additional information Additional information: 24-year-old female presents for nausea, vomiting, epigastric abdominal pain. Patient underwent laparoscopic cholecystectomy and what sounds like an ERCP for a bile duct stone 1 week ago at [facility]. Procedure was complicated by postprocedural pancreatitis, but patient was discharged 4 days ago. Patient states that when she was discharged everything felt normal, but shortly afterward she developed her symptoms. States that she was sent home with oxycodone but no nausea medications. Unable to keep down solids or liquids. Still passing liquid stools and flatus. Review of Systems Constitutional: denies: Fever, Chills GI: reports: Abdominal Pain, Nausea, Vomiting, Diarrhea. denies: Constipation Musculoskeletal: denies: Neck pain, Back pain, Extremity pain Neurologic: denies: Generalized weakness, Focal weakness, Numbness PD PAST MEDICAL HISTORY - Past Medical History Past Medical History: Yes Cardiovascular: None Respiratory: None Neuro: None Endocrine/Autoimmune: None GI: GERD, Cholelithiasis, Other [employer] ON CALL: None : None Psych: Depression, Anxiety Musculoskeletal: None Derm: None - Past Surgical History Past Surgical History: No General: Cholecystectomy - Present Medications Home Medications: Ambulatory Orders Medication Instructions Recorded Confirmed Acetaminophen [Tylenol] 1,000 mg PO Q6HR PRN 03/15/24 03/15/24 oxyCODONE [Roxicodone] 5 mg PO Q4HR PRN 03/15/24 03/15/24 - Allergies Allergies/Adverse Reactions: Allergies Allergy/AdvReac Type Severity Reaction Status Date / Time shellfish derived Allergy Anaphylaxis Verified 03/15/24 18:26 - Social History Does the pt smoke?: No Smoking Status: Never smoker Does the pt drink ETOH?: No Does the pt have substance abuse?: Yes Substance Use and Type: Marijuana - Immunizations Immunizations are current?: Yes - POLST Patient has POLST: No PD ED PE NORMAL - Vitals Vital signs reviewed: Yes - General General: Alert and oriented X 3, Well developed/nourished, Other (uncomfortable) - Cardiac Cardiac: RRR, Strong equal pulses - Respiratory Respiratory: No respiratory distress, Clear bilaterally - Abdomen Abdomen: Soft, Non distended, Other (midepigastric tenderness to deep palpation) - Derm Derm: Normal color, Warm and dry, No rash, Other (surgical sites clean, dry, intact, healing well) - Neuro Neuro: Alert and oriented X 3, make ready mechanic 2-12 intact, No motor deficit, Normal speech Results - Vitals Vitals: Oxygen O2 Source Room air - Labs Labs: Laboratory Tests 03/15/24 03/15/24 03/15/24 18:43 18:43 18:48 WBC 16.3 H RBC 3.91 L Hgb 10.2 L Hct 33.7 L MCV 86.2 MCH 26.1 L MCHC 30.3 L RDW 18.2 H Plt Count 528 H MPV 10.0 Neut # (Auto) 12.3 H Lymph # (Auto) 2.4 Floyd # (Auto) 1.2 H Eos # (Auto) 0.2 Baso # (Auto) 0.1 Absolute Nucleated RBC 0.00 Nucleated RBC % 0.0 Sodium Potassium Chloride Carbon Dioxide Anion Gap BUN Creatinine Estimated GFR (MDRD) Glucose Lactic Acid Calcium Phosphorus Magnesium Total Bilirubin AST ALT Alkaline Phosphatase Total Protein Albumin Globulin Albumin/Globulin Ratio Lipase Urine Color YELLOW Urine Clarity SL. CLOUDY Urine pH 6.5 Ur Specific Burton 1.020 Urine Protein 30 H Urine Glucose (UA) NEGATIVE Urine Ketones NEGATIVE Urine Occult Blood LARGE H Urine Nitrite NEGATIVE Urine Bilirubin SMALL H Urine Urobilinogen 0.2 (NORMAL) Ur Leukocyte Esterase MODERATE H Urine RBC TNTC H Urine WBC >25 H Ur Epithelial Cells FEW Transitional Ur Squamous Epith Cells MANY Squamous H Urine Bacteria Rare Ur Microscopic Review INDICATED Urine Culture Comments NOT INDICATED Urine HCG, Qual NEGATIVE Urine Opiates Screen NEGATIVE Ur Buprenorphine Scrn NEGATIVE Ur Oxycodone Screen NEGATIVE Urine Methadone Screen NEGATIVE Ur Barbiturates Screen NEGATIVE Ur Tricyclics Screen NEGATIVE Ur Phencyclidine Scrn NEGATIVE Ur Amphetamine Screen NEGATIVE U Methamphetamines Scrn NEGATIVE U Benzodiazepines Scrn NEGATIVE Urine Cocaine Screen NEGATIVE U Cannabinoids Screen POSITIVE H Ur Drug Screen Comment CUTOFF CONC BELOW: 03/15/24 03/15/24 03/15/24 18:48 21:59 23:00 WBC RBC Hgb Hct MCV MCH MCHC RDW Plt Count MPV Neut # (Auto) Lymph # (Auto) Floyd # (Auto) Eos # (Auto) Baso # (Auto) Absolute Nucleated RBC Nucleated RBC % Sodium 140 Potassium 2.8 L Chloride 96 L Carbon Dioxide 34 H Anion Gap 10.0 BUN 8 Creatinine 0.6 Estimated GFR (MDRD) 121 Glucose 110 H Lactic Acid 0.5 Calcium 9.6 Phosphorus Magnesium Total Bilirubin 0.4 AST 12 ALT 37 Alkaline Phosphatase 99 Total Protein 7.2 Albumin 3.5 Globulin 3.7 Albumin/Globulin Ratio 0.9 L Lipase 24 Urine Color YELLOW Urine Clarity CLEAR Urine pH 7.0 Ur Specific Burton <=1.005 Urine Protein NEGATIVE Urine Glucose (UA) NEGATIVE Urine Ketones NEGATIVE Urine Occult Blood MODERATE H Urine Nitrite NEGATIVE Urine Bilirubin NEGATIVE Urine Urobilinogen 0.2 (NORMAL) Ur Leukocyte Esterase NEGATIVE Urine RBC 0-5 Urine WBC 0-3 Ur Epithelial Cells Ur Squamous Epith Cells FEW Squamous Urine Bacteria Rare Ur Microscopic Review INDICATED Urine Culture Comments NOT INDICATED Urine HCG, Qual Urine Opiates Screen Ur Buprenorphine Scrn Ur Oxycodone Screen Urine Methadone Screen Ur Barbiturates Screen Ur Tricyclics Screen Ur Phencyclidine Scrn Ur Amphetamine Screen U Methamphetamines Scrn U Benzodiazepines Scrn Urine Cocaine Screen U Cannabinoids Screen Ur Drug Screen Comment 03/16/24 03/16/24 03/16/24 06:31 06:31 06:31 WBC 16.3 H RBC 3.38 L Hgb 8.9 L Hct 28.7 L MCV 84.9 MCH 26.3 L MCHC 31.0 L RDW 18.2 H Plt Count 427 MPV 9.8 Neut # (Auto) 13.1 H Lymph # (Auto) 1.6 Floyd # (Auto) 1.2 H Eos # (Auto) 0.2 Baso # (Auto) 0.1 Absolute Nucleated RBC 0.00 Nucleated RBC % 0.0 Sodium 137 Potassium 3.0 L Chloride 100 L Carbon Dioxide 28 Anion Gap 9.0 BUN 6 Creatinine 0.5 L Estimated GFR (MDRD) 149 Glucose 99 Lactic Acid Calcium 8.9 Phosphorus 4.2 Magnesium 1.9 Total Bilirubin 0.3 AST 10 ALT 28 Alkaline Phosphatase 102 Total Protein 6.6 Albumin 3.1 L Globulin 3.5 Albumin/Globulin Ratio 0.9 L Lipase 26 Urine Color Urine Clarity Urine pH Ur Specific Burton Urine Protein Urine Glucose (UA) Urine Ketones Urine Occult Blood Urine Nitrite Urine Bilirubin Urine Urobilinogen Ur Leukocyte Esterase Urine RBC Urine WBC Ur Epithelial Cells Ur Squamous Epith Cells Urine Bacteria Ur Microscopic Review Urine Culture Comments Urine HCG, Qual Urine Opiates Screen Ur Buprenorphine Scrn Ur Oxycodone Screen Urine Methadone Screen Ur Barbiturates Screen Ur Tricyclics Screen Ur Phencyclidine Scrn Ur Amphetamine Screen U Methamphetamines Scrn U Benzodiazepines Scrn Urine Cocaine Screen U Cannabinoids Screen Ur Drug Screen Comment - Rads (name of study) No standard instances Relevant Findings:: Prelim report reviewed, Final report received, Discussed with apollo, QUINTON independent interpretation of test PD Medical Decision Making - ED course Complexity details: reviewed old records, reviewed results, re-evaluated patient, considered differential, d/w patient, d/w tax consultant ED course: Nontoxic patient presenting with recurrent abdominal pain with recent post ERCP pancreatitis. Abdomen is soft but she is tender to palpation in the upper abdominal quadrants. No peritoneal signs. Laboratory work ordered in triage significant for WBC count 16, hemoglobin 10, potassium 2.8, normal liver enzymes. Patient seems to be chronically anemic and this is fairly consistent with patient's normal limits. CT of the abdomen pelvis discussed with Dr. Chawla of radiology. There are several abnormal findings in the midepigastric region. The pancreas itself appears normal but there are multiple foci that do not appear to be hemorrhage, however it is difficult to classify. The stomach is also poorly characterized and with small foci of air cannot entirely rule out perforation. Case discussed with Dr. Nguyen of general surgery, who independently reviewed the images. The amount of air in the abdomen seems consistent with patient's postoperative course. There also may be a small transition point in the small bowel, although patient is still having bowel movements and passing flatus. General surgery recommended CT with oral and IV contrast for additional assessment. If this is post procedural pancreatic inflammation then patient may need to be transferred back to original hospital for repeat ERCP. Patient informed of lab and imaging findings, she is in agreement with additional CT scanning at this time 0200: Repeat CT imaging with oral contrast shows no evidence of gastric perforation or bowel obstruction. There again are finding seen in the pancreas concerning for peripancreatic inflammation. Discussed the CT findings with on- call general surgery, who stated that transfer to GI capable hospital may be of benefit as patient may require repeat ERCP. Call placed to [facility] in [place] for consult since patient was just operated on at that facility. 0305: Transfer center nurse called back, I was unable to speak with gastroenterology on-call, however they apparently told the nurse that based on labs and CT report patient did not need repeat ERCP. Per transfer lne there are 2 groups of GI doctors, they were not able to contact the original GI team. The GI team that was able to be contacted did recommend that surgery be contacted for evaluation, but they needed images pushed over to their system prior to consult. Radiology notified to push images to [facility], will await surgery callback 0427: Spoke with Dr. Ruiz of surgery at [facility]. He reviewed images and cases. He states no surgical intervention at this time. He does think that this is related to post ERCP pancreatitis and should be excepted by the GI team for transfer. I rediscussed with Becka of the transfer center, who stated that she was not able to get a hold of the GI team that performed this procedure but will repage at 6 AM. Patient is currently able to tolerate ice chips, she has required several doses of IV pain medication for comfort. 0625: Spoke with Dr Young of [facility]. He agrees that with the abnormal CT findings and recent procedure patient should be transferred to facility with GI capabilities. Currently no available beds, however they anticipate discharges later this morning.Patient informed of GI and general surgery recommendations, she is in agreement with transfer at this time. Care of patient signed to Dr. Rocha at 0700 Departure - Departure Disposition: 02 Transfer Acute Care Hosp Clinical Impression: Post-ERCP acute pancreatitis Condition: Stable Forms: PCP List Discharge Date/Time: 03/16/24 11:45
[2024-03-15] MEDS: MORPHINE 2 MG/ML CARPUJECT IVP STA (20:27)
[2024-03-15] MEDS: ONDANSETRON 4 MG/2 ML VIAL IVP STA (20:27)
[2024-03-15] MEDS: SODIUM CHLORIDE 0.9% 1,000 ML IV STA (20:28)
[2024-03-15] MEDS ORDERED: iohexoL-300 100 ML VIAL ONE ×2 (21:04→22:19)
[2024-03-15] MEDS: POTASSIUM CHLORIDE 20 MEQ TABLET PO STA (21:06)
[2024-03-15] MEDS: iohexoL-300 100 ML VIAL IVP ONE (21:26)
--- NOTE | 2024-03-15 21:54 | CT Report ---
PROCEDURE: Abdomen/Pelvis W INDICATIONS: INTRACTABLE N/V, LAP TRAVON 1 WK AGO CONTRAST: Omni 300, 100mls TECHNIQUE: After the administration of intravenous contrast, a CT scan of the abdomen and pelvis was performed. Images were recorded and evaluated at appropriate window settings. Reformats: coronal and sagittal. F or radiation dose reduction, the following was used: automated exposure control, adjustment of mA and /or kV according to patient size. COMPARISON: Ultrasound abdomen, CT abdomen pelvis 03/04/2024 FINDINGS: Image quality: Diagnostic. Lower chest: Streaky opacities in the bases. Liver: No solid mass. Gallbladder and biliary tree: Removed. There is no fluid in the gallbladder fossa. Spleen: No splenomegaly. Pancreas: No pancreatic ductal dilation. No gross inflammatory change. Fluid collection described bel ow is in direct approximation anteriorly to the pancreas. Adrenals: No adrenal nodule. Kidneys and ureters: No hydronephrosis. No renal cystic lesion which requires follow up. No solid mas s. Stomach, bowel and peritoneum: No bowel distension. There are multiple focal and confluent areas of s oft tissue density within the anterior abdomen located posterior and left left to the stomach as well as anterior inferior to the stomach. The focus posteriorly is in direct approximation to the gastric wall as well as the pancreas. The largest focus is the anterior density measuring 9.7 x 6.0 cm. Houn sfield units measure approximately 30. These areas are new compared to prior exam. There are several small foci identified at the superior margin of the right hepatic dome most suggestive of free air. A reas of increased density are identified within the stomach. Air is present within the subcutaneous fat of the right abdomen likely reflective of recent surgery. Lymph nodes: No central or retroperitoneal adenopathy. Vessels: No infrarenal aortic aneurysm. PELVIS Reproductive organs: Unremarkable. Bladder: No abnormal wall thickening, accounting for underdistention. Pelvic lymph nodes: No pelvic adenopathy by size criteria. Bones: No aggressive osseous abnormality. Other: No significant ventral or inguinal hernia. IMPRESSION: Interval cholecystectomy without fluid in the gallbladder fossa. Low-attenuation focal and confluent densities posterior to the stomach as well as anterior and inferi or as described above. Hounsfield units are at the upper limits of simple fluid, although less than e xpected for hemorrhage. Given proximity away from the gallbladder, fluid is suspected not to be relat ed to cholecystectomy. There is a given history of postoperative pancreatitis and this could represen t pancreatic inflammatory sequela. Other differential to consider would be a small gastric perforatio n, with extravasation of gastric contents, given presence of free air although the latter may also be related to postcholecystectomy. The above findings were discussed with Dr. Raymond on 03/15/2024 at 9:52 PM. Reviewed by: Berenice Chawla MD on 03/15/2024 9:53 PM PDT Approved by: Berenice Chawla MD on 03/15/2024 9:53 PM PDT Station ID: [id number]
[2024-03-15] MEDS ORDERED: DIATRIZOATE MEGLU/DIATRIZO SOD 30 ML BOTTLE PO ONE (22:05)
[2024-03-15] MEDS: HYDROmorphone 1 MG/ML CARPUJECT IVP STA (22:58)
[2024-03-15 23:19] LABS: BILIRUBIN,URINE NEGATIVE (NEGATIVE); GLUCOSE, URINE (UA) NEGATIVE (NEGATIVE); KETONES,URINE (UA) NEGATIVE (NEGATIVE); LEUKOCYTE ESTERASE, URINE NEGATIVE (NEGATIVE); NITRITE,URINE NEGATIVE (NEGATIVE); OCCULT BLOOD,URINE MODERATE (NEGATIVE); PROTEIN,URINE NEGATIVE (NEGATIVE); UROBILINOGEN,URINE 0.2 (NORMAL) E.U./dL (NORMAL)
[2024-03-15 23:22] LABS: CLARITY,URINE CLEAR (CLEAR)
[2024-03-15 23:24] LABS: BACTERIA,URINE Rare /HPF (None Seen); RBC,URINE 0-5 /HPF (0-5); SQUAMOUS EPITHELIAL CELL,UR FEW Squamous (<= Few); WBC,URINE 0-3 /HPF (0-5)
--- NOTE | 2024-03-16 01:41 | CT Report ---
PROCEDURE: Abdomen/Pelvis W INDICATIONS: N/V/SBO? PERF? CONTRAST: Omni 300, 100mls TECHNIQUE: After the administration of intravenous contrast, a CT scan of the abdomen and pelvis was performed. Images were recorded and evaluated at appropriate window settings. Reformats: coronal and sagittal. F or radiation dose reduction, the following was used: automated exposure control, adjustment of mA and /or kV according to patient size. COMPARISON: CT abdomen pelvis 03/15/2024 at 9:17 PM FINDINGS: Image quality: Diagnostic. Lower chest: Streaky opacities in the bases. Liver: No solid mass. Gallbladder and biliary tree: Removed. There is no fluid in the gallbladder fossa. Spleen: No splenomegaly. Pancreas: No pancreatic ductal dilation. No gross inflammatory change. Fluid collection described bel ow is in direct approximation anteriorly to the pancreas. Adrenals: No adrenal nodule. Kidneys and ureters: No hydronephrosis. No renal cystic lesion which requires follow up. No solid mas s. Stomach, bowel and peritoneum: No bowel distension. There is been administration of oral contrast whi ch demonstrates no extravasation outside the gastric lumen.. Unchanged from prior exam: multiple focal and confluent areas of soft tissue density within the anter ior abdomen located posterior and left left to the stomach as well as anterior inferior to the stomac h. The focus posteriorly is in direct approximation to the gastric wall as well as the pancreas. The largest focus is the anterior density measuring 9.7 x 6.0 cm. Hounsfield units measure approximately 30. These areas are new compared to prior exam. There are several small foci identified at the superi or margin of the right hepatic dome most suggestive of free air. Areas of increased density are ident ified within the stomach. Air is present within the subcutaneous fat of the right abdomen likely reflective of recent surgery. Lymph nodes: No central or retroperitoneal adenopathy. Vessels: No infrarenal aortic aneurysm. PELVIS Reproductive organs: Unremarkable. Bladder: No abnormal wall thickening, accounting for underdistention. Pelvic lymph nodes: No pelvic adenopathy by size criteria. Bones: No aggressive osseous abnormality. Other: No significant ventral or inguinal hernia. IMPRESSION: Cholecystectomy without fluid in the gallbladder fossa. Low-attenuation focal and confluent densities posterior to the stomach as well as anterior and inferi or as described above. There are unchanged compared to prior exam. Given proximity away from the gall bladder, fluid is suspected not to be related to cholecystectomy. There is a given history of postoperative pa ncreatitis and this could represent pancreatic inflammatory sequela. There is no visualized evidence of perforation of the stomach to account for the perigastric fluid. Oral contrast appears contained w ithin the lumen. Reviewed by: Berenice Chawla MD on 03/16/2024 1:40 AM PDT Approved by: Berenice Chawla MD on 03/16/2024 1:40 AM PDT Station ID: [id number]
[2024-03-16] MEDS: HYDROmorphone 1 MG/ML CARPUJECT IVP STA (03:23)
[2024-03-16] MEDS: ONDANSETRON 4 MG/2 ML VIAL IVP STA (03:28)
[2024-03-16] MEDS: ACETAMINOPHEN 1,000 MG/100 ML 1,000 MG/100 ML BAG IV ONE (05:04)
[2024-03-16 06:09] VITALS: O2SAT 95
[2024-03-16] MEDS: SODIUM CHLORIDE 0.9% 1,000 ML IV STA (06:33)
[2024-03-16 06:42] LABS: BASOPHILS # (AUTO) 0.1 10^3/uL (0.0-0.1); BASOPHILS % (AUTO) 0.3 %; EOSINOPHILS # (AUTO) 0.2 10^3/uL (0.0-0.7); EOSINOPHILS % (AUTO) 1.2 %; HCT - HEMATOCRIT 28.7 % (37.0-47.0); HGB - HEMOGLOBIN 8.9 g/dL (12.0-16.0); LYMPHOCYTES # (AUTO) 1.6 10^3/uL (1.5-3.5); LYMPHOCYTES % (AUTO) 9.7 %; MEAN CORPUSCULAR HEMOGLOBIN 26.3 pg (27.0-31.0); MEAN CORPUSCULAR VOLUME 84.9 fL (81.0-99.0); MEAN PLATELET VOLUME 9.8 fL (7.9-10.8); MONOCYTES # (AUTO) 1.2 10^3/uL (0.0-1.0); MONOCYTES % (AUTO) 7.3 %; NEUTROPHILS # (AUTO) 13.1 10^3/uL (1.5-6.6); NEUTROPHILS % (AUTO) 80.4 %; PLT - PLATELET COUNT 427 10^3/uL (130-450); RED BLOOD COUNT 3.38 10^6/uL (4.20-5.40); RED CELL DISTRIBUTION WIDTH 18.2 % (12.0-15.0); WHITE BLOOD COUNT 16.3 x10^3/uL (4.8-10.8)
[2024-03-16 07:00] LABS: ALBUMIN 3.1 g/dL (3.2-5.5); ALBUMIN/GLOBULIN RATIO 0.9 (1.0-2.2); BILIRUBIN,TOTAL 0.3 mg/dL (0.2-1.0); CALCIUM 8.9 mg/dL (8.5-10.3); CREATININE 0.5 mg/dL (0.6-1.3); TOTAL PROTEIN 6.6 g/dL (6.4-8.9)
[2024-03-16 07:31] LABS: MAGNESIUM 1.9 mg/dL (1.7-2.3); PHOSPHORUS 4.2 mg/dL (2.5-5.0)
[2024-03-16] MEDS: POTASSIUM CHLOR 10 MEQ/100 ML 10 MEQ/100 ML BAG IV ONE (07:49)
[2024-03-16] MEDS: LACTATED RINGERS 1,000 ML IV SCH (07:50)
[2024-03-16] MEDS ORDERED: DROPERIDOL 5 MG/2 ML VIAL ONE (09:06)
[2024-03-16] MEDS ORDERED: KETOROLAC 15 MG/ML VIAL ONE (09:06)
--- NOTE | 2024-03-16 11:52 | ED Physician Documentation ---
ED Addendum - Addendum Addendum: 03/16/24 11:49 The patient remained stable through the morning after change of shift. Such as [facility] did have bed available and subsequently called to accept transfer. She did require some more antiemetic medication but otherwise doing okay. She continue with some IV fluids. She was allowed ice chips only for the potential of need for recurrent laparoscopy. I did not discuss with her persistent specific plans of what would be done up there. Her CT initial and then repeat was showing a fluid collection around the stomach area. Postoperative expected changes in the gallbladder fossa. Otherwise fluid collection around the gastrum area. No signs of perforation of the gastrum. Consideration of seroma or other fluid accumulations from the laparoscopic incision. Other consideration would be a pancreatic pseudocyst but her pancreatic enzymes are normal and no overt pancreatic inflammation noted on the CT. Given she had had recent surgery done there the's surgical group was excepting consult transfer and the hospitalist had previously accepted. Bed is now available and she is transferred in stable condition. Disposition: The patient is transferred to acute care hospital in stable condition. Diagnoses: 1. Postoperative upper abdominal pain 2. Status postcholecystectomy 3. Intra-abdominal fluid collection
[2024-03-16 11:53] VITALS: BP 141/86
== END 2024-03-16 11:45 | disposition short-term general hospital (02) ==
LOC: ED 18:12
DX: K85.80 Other acute pancreatitis without necrosis or infection (principal); Z90.49 Acquired absence of other specified parts of digestive tract; Z98.890 Other specified postprocedural states
CPT/HCPCS: 36415; 74177; 80053; 80306; 81001; 81025; 83605; 83690; 83735; 84100; 85025; 96361; 96365; 96375; 96376; 99285; A9270; J0131; J1170; J7120; Q9963; Q9967; 81003; 87086